=== PATIENT | female | born 1975 | race Caucasian/White ===

== ENCOUNTER 2016-07-14 15:59 | Emergency (ER) | payer SELFPAY ==
[~2016-07-14] VITALS: Ht 160 cm; Wt 69.0 kg
[~2016-07-14 15:59] MED LIST: AMOX500T PO; VENL75XR PO
[2016-07-14 16:08] VITALS: BP 146/87; PULSE 109; RESP 16; TEMP 98.4; O2SAT 99
[2016-07-14] MEDS ORDERED: TRAZ100T4 PO (16:34)
[2016-07-14] MEDS ORDERED: VIST25CA PO (16:34)
[2016-07-14] MEDS ORDERED: LURA40 PO (16:38)
[2016-07-14] MEDS ORDERED: GABA600T PO (16:38)
[2016-07-14] MEDS ORDERED: LEXA10TA PO (16:38)
[2016-07-14] MEDS ORDERED: TOPA50TA7 PO (16:38)
--- NOTE | 2016-07-14 16:53 | PD ---
HPI Chief Complaint: GI Complaint Time Seen by Provider: 16:51 Travel History International Travel<30 days: No Contact w/Intl Traveler<30days: No Traveled to known affect area: No History of Present Illness HPI This 40-year-old female is complaining of nausea and vomiting. She's also been having diarrhea. She's been sick for about 4 days. There's been no recent travel. She cannot think of anything she ate to start it. She has had some sores in her mouth. She has a history of bipolar disease and is on multiple Meds. His been no recent change PFS Past Medical History Anemia: Yes Bipolar Disorder: Yes Anxiety: Yes Depression: Yes Cancer: No Cardiovascular Problems: No Chemotherapy: No Chest Pain: Yes Diabetes: No Diminished Hearing: No Endocrine: No Gastrointestinal Disorders: Yes (ULCERATIVE COLITIS, GASTRITIS, IBS) GERD: Yes Genitourinary: No Headaches: Yes (frequently) Hepatitis: Yes (HEP C) Immune Disorder: No Kidney Stones: Yes (LITHOTRIPSY IN 2008) Musculoskeletal: Yes (SCOLIOSIS) Neurologic: No Psychiatric: Yes (History of overdose, and bipolar) Reproductive: No Respiratory: No Integumentary: Yes (UNKNOWN HIVES) Immunizations Current: Yes Migraines: Yes Pneumonia: Yes Radiation Therapy: No Seizures: Yes (since the age of 17) Sickle Cell Disease: No Thyroid Disease: No Ulcer: Yes Influenza Vaccination: No PNEUMOCCOCAL Vaccine (Year): 2008 ?: Not LMP: ABLATION : 4 Para: 3 Miscarriage: 1 : 0 Ovarian Cysts: Yes Dilation and Curettage (D&C): Yes Tubal Ligation: Yes Past Surgical History Body Medical Devices: BREAST IMPLANTS Genitourinary Surgery: Yes (LITHOTRIPSY) Gynecologic Surgery: Yes (ABLATION) Neurologic Surgery: Yes (LUMBAR PUNCTURE 05/19/13) Pacemaker: No Tonsillectomy: Yes Other Surgery: Yes (BREAST AUGMENTATION, ) Social History Alcohol Use: No Tobacco Use: Yes (Vapes) Substance Use: No ( FLAKKA AND AMPHET. DENIES 07/14/16) Allergies-Medications (Allergen,Severity, Reaction): Coded Allergies: Bactrim (Verified Allergy, Severe, throat closes up, 07/14/16) Ceclor (Verified Allergy, Severe, ANAPHYLAXIS, 07/14/16) Cephalosporins (Verified Allergy, Severe, ANAPHYLAXIS, 07/14/16) PATIENT STATES SHE DOES NOT KNOW WHICH CEPHALOSPORINS SHE HAS AN ALLERGY TO. Cipro (Verified Allergy, Severe, Anaphylaxis, 07/14/16) Flu Vaccine (Verified Allergy, Severe, THROAT SWELLS, 07/14/16) Latex (Verified Allergy, Severe, RASH, 07/14/16) Phenergan (Verified Adverse Reaction, Intermediate, RESTLESS LEGS/ANXIETY , 07/14/16) *MDRO Multi-Drug Resistant Organism (Verified Adverse Reaction, Unknown, 02/27/15) MRSA (per Dr. Fragoso H&P 05/19/2013) E.coli ESBL (urine) - 06/2014 and 07/22/14. Reported Meds & Prescriptions Reported Meds & Active Scripts Active Reported Gabapentin 600 Mg Tab 600 Mg PO BID Topamax (Topiramate) 50 Mg Tab 50 Mg PO BID Lexapro (Escitalopram Oxalate) 10 Mg Tab 10 Mg PO DAILY Latuda (Lurasidone) 40 Mg Tab 40 Mg PO DAILY Vistaril (Hydroxyzine Pamoate) 25 Mg Cap 25 Mg PO QID PRN Trazodone (Trazodone HCl) 100 Mg Tab 100 Mg PO HS Review of Systems General / Constitutional: No: Fever, Chills Eyes: No: Diploplia, Blurred Vision HENT: No: Headaches, Vertigo Cardiovascular: No: Chest Pain or Discomfort Respiratory: No: Cough, Shortness of Breath Gastrointestinal: Positive: Vomiting, Diarrhea Genitourinary: No: Urgency, Frequency Musculoskeletal: No: Myalgias, Arthralgias Skin: No Itching Psychiatric: Positive: Depression Hematologic/Lymphatic: No: Easy Bruising Physical Exam Narrative GENERAL: Well-developed female SKIN: Warm and dry. HEAD: Atraumatic. Normocephalic. EYES: Pupils equal and round. No scleral icterus. No injection or drainage. ENT: No nasal bleeding or discharge. Mucous membranes pink and moist. NECK: Trachea midline. No JVD. CARDIOVASCULAR: Regular rate and rhythm. No murmur appreciated. RESPIRATORY: No accessory muscle use. Clear to auscultation. Breath sounds equal bilaterally. GASTROINTESTINAL: Abdomen soft, non-tender, nondistended. Hepatic and splenic margins not palpable. MUSCULOSKELETAL: No obvious deformities. No clubbing. No cyanosis. No edema. NEUROLOGICAL: Awake and alert. No obvious cranial nerve deficits. Motor grossly within normal limits. Normal speech. PSYCHIATRIC: Appropriate mood and affect; insight and judgment normal. Data Data Last Documented VS Vital Signs Date Time Temp Pulse Resp B/P Pulse Ox O2 Delivery O2 Flow Rate FiO2 07/14/16 18:08 98 20 119/72 98 07/14/16 16:08 98.4 Orders Complete Blood Count With Diff (07/14/16 16:51) Comprehensive Metabolic Panel (07/14/16 16:51) Sodium Chlor 0.9% 1000 Ml Inj (Ns 1000 M (07/14/16 17:00) Sodium Chlor 0.9% 1000 Ml Inj (Ns 1000 M (07/14/16 17:00) Ondansetron Inj (Zofran Inj) (07/14/16 17:00) Urinalysis - C+S If Indicated (07/14/16 16:51) Labs Laboratory Tests Test 07/14/16 07/14/16 16:50 17:35 Urine Color ANNITA Urine Turbidity CLEAR Urine pH 6.5 Urine Specific [place] 1.014 Urine Protein NEG mg/dL Urine Glucose (UA) NEG mg/dL Urine Ketones TRACE mg/dL Urine Occult Blood NEG Urine Nitrite NEG Urine Bilirubin NEG Urine Leukocyte Esterase NEG Urine RBC 0-3 /hpf Urine WBC 0-2 /hpf Urine Squamous Epithelial > 8 /hpf Cells Urine Bacteria FEW /hpf Microscopic Urinalysis Comment CULT NOT INDICATED White Blood Count 6.6 TH/MM3 Red Blood Count 4.34 MIL/MM3 Hemoglobin 13.7 GM/DL Hematocrit 39.2 % Mean Corpuscular Volume 90.3 FL Mean Corpuscular Hemoglobin 31.5 PG Mean Corpuscular Hemoglobin 34.9 % Concent Red Cell Distribution Width 12.1 % Platelet Count 170 TH/MM3 Mean Platelet Volume 8.6 FL Neutrophils (%) (Auto) 51.0 % Lymphocytes (%) (Auto) 37.3 % Monocytes (%) (Auto) 10.0 % Eosinophils (%) (Auto) 1.1 % Basophils (%) (Auto) 0.6 % Neutrophils # (Auto) 3.4 TH/MM3 Lymphocytes # (Auto) 2.4 TH/MM3 Monocytes # (Auto) 0.7 TH/MM3 Eosinophils # (Auto) 0.1 TH/MM3 Basophils # (Auto) 0.0 TH/MM3 CBC Comment DIFF FINAL Differential Comment Sodium Level 139 MEQ/L Potassium Level 3.4 MEQ/L Chloride Level 105 MEQ/L Carbon Dioxide Level 25.5 MEQ/L Anion Gap 9 MEQ/L Blood Urea Nitrogen 11 MG/DL Creatinine 0.77 MG/DL Estimat Glomerular Filtration 83 ML/MIN Rate Random Glucose 95 MG/DL Calcium Level 8.5 MG/DL Total Bilirubin 1.0 MG/DL Aspartate Amino Transf 34 U/L (AST/SGOT) Alanine Aminotransferase 66 U/L (ALT/SGPT) Alkaline Phosphatase 69 U/L Total Protein 6.9 GM/DL Albumin 3.8 GM/DL MDM Medical Decision Making Medical Screen Exam Complete: Yes Emergency Medical Condition: Yes Medical Record Reviewed: Yes Differential Diagnosis Differential includes food poisoning, gastroenteritis, dehydration Narrative Course Patient has been given IV fluids and Zofran. She has been able to tolerate some by mouth liquids. She is stable for discharge. I will prescribe Zofran for her to use as an outpatient Diagnosis Primary Impression: Gastroenteritis Scripts Ondansetron Odt (Zofran Odt)4 Mg Tab4 Mg SL Q6HR PRN (Nausea/Vomiting) #12 TAB Ref 0 Prov:Estevan Burroughs MD 07/14/16 Disposition: 01 DISCHARGE HOME Condition: Stable Estevan Burroughs MD Jul 14, 2016 16:53
[2016-07-14] MEDS ORDERED: ONDANSETRON HCL 4 MG/2 ML VIAL IV PUSH ONE (17:00)
[2016-07-14] MEDS ORDERED: SODIUM CHLOR 0.9% 1000 ML INJ 1,000 ML IV ONE ×2 (17:00)
[2016-07-14 17:29] LABS: BLOOD, URINE NEG (NEG); GLUCOSE,URINE NEG (NEG); KETONE, URINE TRACE mg/dL (NEG); NITRITE,URINE NEG (NEG); PH, URINE 6.5 (5.0-8.5)
[2016-07-14 17:37] LABS: URINE COLOR AMBER (YELLW/STRAW)
[2016-07-14 17:38] LABS: BACTERIA, URINE FEW /hpf; COMMENT (UR) CULT NOT INDICATED; CULTURE IF INDICATED CULT NOT INDICATED; RBC, URINE 0-3 /hpf (0-3); SQUAMOUS EPITHELIAL CELL URINE > 8 /hpf (0-5); WBC, URINE 0-2 /hpf (0-5)
[2016-07-14 17:40] LABS: AUTOMATED NEUTROPHIL # 3.4 TH/MM3 (1.8-7.7); BASOPHIL % 0.6 % (0.0-2.0); EOSINOPHIL # 0.1 TH/MM3 (0-0.4); EOSINOPHIL % 1.1 % (0.0-4.0); HEMATOCRIT 39.2 % (35.0-46.0); HEMO FLAGS DIFF FINAL; LYMPH % 37.3 % (9.0-44.0); LYMPHOCYTE # 2.4 TH/MM3 (1.0-4.8); MEAN CELL VOLUME 90.3 FL (80.0-100.0); MEAN CORPUSCULAR HEMOGLOBIN 31.5 PG (27.0-34.0); MEAN CORPUSCULAR HGB CONC 34.9 % (32.0-36.0); PLATELET COUNT 170 TH/MM3 (150-450); RED BLOOD COUNT 4.34 MIL/MM3 (4.00-5.30); RED CELL DISTRIBUTION WIDTH 12.1 % (11.6-17.2); WHITE BLOOD COUNT 6.6 TH/MM3 (4.0-11.0)
[2016-07-14 17:48] LABS: CHLORIDE 105 MEQ/L (98-107); POTASSIUM 3.4 MEQ/L (3.5-5.1); SODIUM (NA) 139 MEQ/L (136-145)
[2016-07-14 17:52] LABS: ANION GAP 9 MEQ/L (5-15); BICARBONATE 25.5 MEQ/L (21.0-32.0); BLOOD UREA NITROGEN 11 MG/DL (7-18)
[2016-07-14 17:55] LABS: ALT (GPT) 66 U/L (10-53); AST (GOT) 34 U/L (15-37); GLOMERULAR FILTRATION RATE 83 ML/MIN (>89)
[2016-07-14 17:58] LABS: ALKALINE PHOSPHATASE 69 U/L (45-117)
[2016-07-14 18:08] VITALS: BP 119/72; PULSE 98; RESP 20; O2SAT 98
[2016-07-14] MEDS ORDERED: ZOFR4TAB3 SL (18:22)
[2016-07-14 19:05] VITALS: BP 103/50; PULSE 99; RESP 16; O2SAT 95
== END 2016-07-14 19:24 | disposition home or self-care (01) ==
LOC: PHED 15:59
DX: K52.9 Noninfective gastroenteritis and colitis, unspecified (principal); K13.70 Unspecified lesions of oral mucosa; Z72.0 Tobacco use; Z79.899 Other long term (current) drug therapy; Z86.59 Personal history of other mental and behavioral disorders; Z86.2 Personal history of diseases of the blood and blood-forming organs and certain disorders involving the immune mechanism; Z87.19 Personal history of other diseases of the digestive system; Z86.19 Personal history of other infectious and parasitic diseases; Z87.442 Personal history of urinary calculi; Z87.39 Personal history of other diseases of the musculoskeletal system and connective tissue; Z86.69 Personal history of other diseases of the nervous system and sense organs; Z87.01 Personal history of pneumonia (recurrent)
CPT/HCPCS: 80053; 81001; 85025; 96361; 96374; 99284; J2405; J7030

== ENCOUNTER 2016-07-26 14:13 | Emergency (ER) | payer SELFPAY ==
[~2016-07-26] VITALS: Ht 162.6 cm; Wt 70.0 kg
[~2016-07-26 14:13] MED LIST changes: -AMOX500T PO; +GABA600T PO; +LEXA10TA PO; +LURA40 PO; +TOPA50TA7 PO; +TRAZ100T4 PO; -VENL75XR PO; +VIST25CA PO; +ZOFR4TAB3 SL
[2016-07-26 14:30] VITALS: BP 95/67; PULSE 81; RESP 16; TEMP 99.1; O2SAT 98
[2016-07-26 14:46] LABS: BLOOD, URINE NEG (NEG); GLUCOSE,URINE NEG (NEG); KETONE, URINE NEG (NEG); NITRITE,URINE NEG (NEG); PH, URINE 6.5 (5.0-8.5)
[2016-07-26 14:54] LABS: METHOD OF COLLECTION CLEAN CATCH; URINE COLOR YELLOW (YELLW/STRAW)
[2016-07-26 14:57] LABS: COMMENT (UR) CULT NOT INDICATED; CULTURE IF INDICATED CULT NOT INDICATED; SQUAMOUS EPITHELIAL CELL URINE 0-5 /hpf (0-5)
--- NOTE | 2016-07-26 15:17 | PD ---
HPI Chief Complaint: Para Operator Problem/Complaint Time Seen by Provider: 15:02 Travel History International Travel<30 days: No Contact w/Intl Traveler<30days: No Traveled to known affect area: No History of Present Illness HPI This is a 40-year-old female who presents to the emergency department with 1 week of hand swelling, constant, moderate severity associated with generalized fatigue and weakness and body aches. She denies any fevers or chills. 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 Currently she is in a penitentiary house. She also reports that she has dentures and has developed an ulceration on her upper gum line with some pus. She also had unprotected sex when she had relapsed and is having white vaginal discharge which is abnormal for her. PFSH Past Medical History Anemia: Yes Bipolar Disorder: Yes Anxiety: Yes Depression: Yes Cancer: No Cardiovascular Problems: No Chemotherapy: No Chest Pain: Yes Diabetes: No Diminished Hearing: No Endocrine: No Gastrointestinal Disorders: Yes (ULCERATIVE COLITIS, GASTRITIS, IBS) GERD: Yes Genitourinary: No Headaches: Yes (frequently) Hepatitis: Yes (HEP C) Immune Disorder: No Kidney Stones: Yes (LITHOTRIPSY IN 2008) Musculoskeletal: Yes (SCOLIOSIS) Neurologic: No Psychiatric: Yes (History of overdose, and bipolar) Reproductive: No Respiratory: No Integumentary: Yes (UNKNOWN HIVES) Immunizations Current: Yes Migraines: Yes Pneumonia: Yes Radiation Therapy: No Seizures: Yes (since the age of 17) Sickle Cell Disease: No Thyroid Disease: No Ulcer: Yes Influenza Vaccination: No PNEUMOCCOCAL Vaccine (Year): 2008 ?: Not LMP: TUBAL/ABLATION : 4 Para: 3 Miscarriage: 1 : 0 Ovarian Cysts: Yes Dilation and Curettage (D&C): Yes Tubal Ligation: Yes Past Surgical History Body Medical Devices: BREAST IMPLANTS Genitourinary Surgery: Yes (LITHOTRIPSY) Gynecologic Surgery: Yes (ABLATION) Neurologic Surgery: Yes (LUMBAR PUNCTURE 05/19/13) Pacemaker: No Tonsillectomy: Yes Other Surgery: Yes (BREAST AUGMENTATION, ) Social History Alcohol Use: No Tobacco Use: Yes (Vapes) Substance Use: No ( FLAKKA AND AMPHET. DENIES 07/14/16) Allergies-Medications (Allergen,Severity, Reaction): Coded Allergies: Bactrim (Verified Allergy, Severe, throat closes up, 3/3/17) Ceclor (Verified Allergy, Severe, ANAPHYLAXIS, 07/14/16) Cephalosporins (Verified Allergy, Severe, ANAPHYLAXIS, 07/14/16) PATIENT STATES SHE DOES NOT KNOW WHICH CEPHALOSPORINS SHE HAS AN ALLERGY TO. Cipro (Verified Allergy, Severe, Anaphylaxis, 07/14/16) Flu Vaccine (Verified Allergy, Severe, THROAT SWELLS, 07/14/16) Latex (Verified Allergy, Severe, RASH, 07/14/16) Phenergan (Verified Adverse Reaction, Intermediate, RESTLESS LEGS/ANXIETY , 07/14/16) *MDRO Multi-Drug Resistant Organism (Verified Adverse Reaction, Unknown, 02/27/15) MRSA (per Dr. Fragoso H&P 05/19/2013) E.coli ESBL (urine) - 06/2014 and 07/22/14. Reported Meds & Prescriptions Reported Meds & Active Scripts Active Reported Gabapentin 600 Mg Tab 600 Mg PO BID Topamax (Topiramate) 50 Mg Tab 50 Mg PO BID Lexapro (Escitalopram Oxalate) 10 Mg Tab 10 Mg PO DAILY Latuda (Lurasidone) 40 Mg Tab 40 Mg PO DAILY Vistaril (Hydroxyzine Pamoate) 25 Mg Cap 25 Mg PO QID PRN Trazodone (Trazodone HCl) 100 Mg Tab 100 Mg PO HS Review of Systems Except as stated in HPI: all other systems reviewed are Neg Physical Exam Narrative GENERAL:Well appearing, no acute distress SKIN: Warm and dry. HEAD: Atraumatic. Normocephalic. EYES: Pupils equal and round. No injection or drainage. ENT: Moist mucous membranes. Small ulceration on the left upper gumline with some purulent discharge. NECK: Trachea midline. CARDIOVASCULAR: Regular rate and rhythm. No murmur appreciated. Normal capillary refill in all fingers. RESPIRATORY: Clear to auscultation. Breath sounds equal bilaterally. GASTROINTESTINAL: Abdomen soft, non-tender, nondistended. MEDICAL FEE CLERK: scant white discharge with a fishy odor. MUSCULOSKELETAL: Swelling of both hands. NEUROLOGICAL: Awake and alert. No obvious cranial nerve deficits. Moving all extremities. PSYCHIATRIC: Appropriate mood and affect; insight and judgment normal. Data Data Last Documented VS Vital Signs Date Time Temp Pulse Resp B/P Pulse Ox O2 Delivery O2 Flow Rate FiO2 07/26/16 14:30 99.1 81 16 95/67 98 Orders Urinalysis - C+S If Indicated (07/26/16 14:32) Complete Blood Count With Diff (07/26/16 15:12) Comprehensive Metabolic Panel (07/26/16 15:12) ^ Insert Iv (07/26/16 15:12) Blood Culture (07/26/16 15:12) Wet Prep Profile (07/26/16 15:12) C-Reactive Protein (Crp) (07/26/16 15:12) Creatine Kinase (Cpk) (07/26/16 15:12) Labs Laboratory Tests Test 07/26/16 07/26/16 14:30 15:31 Urine Collection Type CLEAN CATCH Urine Color YELLOW Urine Turbidity CLEAR Urine pH 6.5 Urine Specific [place] 1.007 Urine Protein NEG mg/dL Urine Glucose (UA) NEG mg/dL Urine Ketones NEG mg/dL Urine Occult Blood NEG Urine Nitrite NEG Urine Bilirubin NEG Urine Leukocyte Esterase NEG Urine Squamous Epithelial 0-5 /hpf Cells Microscopic Urinalysis Comment CULT NOT INDICATED White Blood Count 7.4 TH/MM3 Red Blood Count 4.23 MIL/MM3 Hemoglobin 13.3 GM/DL Hematocrit 38.4 % Mean Corpuscular Volume 90.7 FL Mean Corpuscular Hemoglobin 31.3 PG Mean Corpuscular Hemoglobin 34.5 % Concent Red Cell Distribution Width 12.4 % Platelet Count 159 TH/MM3 Mean Platelet Volume 8.6 FL Neutrophils (%) (Auto) 69.5 % Lymphocytes (%) (Auto) 24.0 % Monocytes (%) (Auto) 4.9 % Eosinophils (%) (Auto) 1.0 % Basophils (%) (Auto) 0.6 % Neutrophils # (Auto) 5.1 TH/MM3 Lymphocytes # (Auto) 1.8 TH/MM3 Monocytes # (Auto) 0.4 TH/MM3 Eosinophils # (Auto) 0.1 TH/MM3 Basophils # (Auto) 0.0 TH/MM3 CBC Comment DIFF FINAL Differential Comment MDM Medical Decision Making Medical Screen Exam Complete: Yes Emergency Medical Condition: Yes Interpretation(s) temperature 99.1 no leukocytosis urinalysis: no infection Differential Diagnosis Endocarditis, pelvic inflammatory disease, bacterial vaginosis, Kareem syndrome , Reynaud's phenomenon Narrative Course This is a 40-year-old female who presents to the emergency department with swelling in her fingers and hands ever since she relapsed on IV drugs. She does have a remote history of endocarditis. She was placed on a monitor and an IV was established. Labs are obtained which were all reassuring with a normal white blood cell count and a normal percentage of neutrophils. I think endocarditis is very unlikely and she has no other systemic symptoms. Nonetheless cultures were obtained and I will follow up with them in 2 days. I asked her to return to the emergency department if she develops fevers or other symptoms. Pelvic exam was performed demonstrating white discharge consistent with likely bacterial vaginosis. Given her high risk category, she was empirically treated for cervicitis. She also has evidence of an ulceration below her dentures which appears traumatic. She was counseled to follow up with her denture provider. Diagnosis Primary Impression: Cervicitis Patient Instructions: General Instructions Additional Instructions: If you develop fever, chills, severe abdominal pain, persistent vomiting or inability to eat return to the emergency department. Your pelvic exam today did not include a Pap smear. It is important to followup with a fibre optics jointer on a yearly basis to be tested for cervical cancer as we do not do that from the emergency department. If there is a concern that you have sexually transmitted disease, your partner should be tested. You should followup with your fibre optics jointer or with the health department to get tested for other sexually transmitted diseases like HIV and syphilis, as we do not test for these in the emergency department Med/Other Pt SpecificInfo: Prescription(s) given Scripts Metronidazole (Flagyl)500 Mg [id number] Mg PO BID 7 Days Prov:Jami Phillips MD 07/26/16 Disposition: DISCHARGE HOME Condition: Stable Jami Phillips MD Jul 26, 2016 15:17
[2016-07-26 15:38] LABS: AUTOMATED NEUTROPHIL # 5.1 TH/MM3 (1.8-7.7); BASOPHIL % 0.6 % (0.0-2.0); EOSINOPHIL # 0.1 TH/MM3 (0-0.4); HEMATOCRIT 38.4 % (35.0-46.0); HEMO FLAGS DIFF FINAL; LYMPHOCYTE # 1.8 TH/MM3 (1.0-4.8); MEAN CELL VOLUME 90.7 FL (80.0-100.0); MEAN CORPUSCULAR HEMOGLOBIN 31.3 PG (27.0-34.0); MEAN CORPUSCULAR HGB CONC 34.5 % (32.0-36.0); MONO % 4.9 % (0.0-8.0); NEUT % 69.5 % (16.0-70.0); PLATELET COUNT 159 TH/MM3 (150-450); RED BLOOD COUNT 4.23 MIL/MM3 (4.00-5.30); RED CELL DISTRIBUTION WIDTH 12.4 % (11.6-17.2); WHITE BLOOD COUNT 7.4 TH/MM3 (4.0-11.0)
[2016-07-26] MEDS ORDERED: METR-1 PO (15:46)
[2016-07-26 15:48] LABS: CHLORIDE 112 MEQ/L (98-107); SODIUM (NA) 142 MEQ/L (136-145)
[2016-07-26 15:52] LABS: ANION GAP 8 MEQ/L (5-15); BICARBONATE 21.8 MEQ/L (21.0-32.0); BLOOD UREA NITROGEN 8 MG/DL (7-18)
[2016-07-26 15:55] LABS: ALT (GPT) 113 U/L (10-53); AST (GOT) 43 U/L (15-37); GLOMERULAR FILTRATION RATE 101 ML/MIN (>89)
[2016-07-26 15:57] LABS: TOTAL BILIRUBIN ADULT 0.4 MG/DL (0.2-1.0)
[2016-07-26 15:58] LABS: ALKALINE PHOSPHATASE 97 U/L (45-117); CREATINE KINASE 63 U/L (26-192)
[2016-07-26] MEDS ORDERED: GENTAMICIN SULFATE 80 MG/2 ML VIAL IM ONE (16:00)
[2016-07-26] MEDS ORDERED: AZITHROMYCIN PWD FOR SUSP 1 GM PACKET PO ONE (16:00)
== END 2016-07-26 16:41 | disposition home or self-care (01) ==
LOC: PHED 14:13
DX: N72 Inflammatory disease of cervix uteri (principal); N89.8 Other specified noninflammatory disorders of vagina; M79.89 Other specified soft tissue disorders; D64.9 Anemia, unspecified; Z72.0 Tobacco use
CPT/HCPCS: 80053; 81001; 82550; 85025; 86140; 87040; 87210; 96372; 99284; J1580

== ENCOUNTER 2016-10-11 17:51 | Emergency (ER) | payer SELFPAY ==
[~2016-10-11] VITALS: Ht 162.6 cm; Wt 65.0 kg
[~2016-10-11 17:51] MED LIST changes: +METR-1 PO; -ZOFR4TAB3 SL
[2016-10-11 17:53] VITALS: BP 137/95; PULSE 136; RESP 24; TEMP 99.2; O2SAT 99
--- NOTE | 2016-10-11 18:21 | PD ---
Physical Exam Time Seen by Provider: 18:15 Narrative 41yo F c/o trying to attempt suicide for the past 2 days by taking 15 Dilaudid two days ago and a handful of gabapentin yesterday. Reports SI and doesn't know what she would do next. Louie HI. Denies auditory or visual hallucinations. Patient seen in triage. VS reviewed. Awaiting bed placement. Data Data Last Documented VS Vital Signs Date Time Temp Pulse Resp B/P Pulse Ox O2 Delivery O2 Flow Rate FiO2 10/11/16 17:53 99.2 136 24 137/95 99 Room Air [facility] Supervised Visit with MARGE: Bindu Santana October 11, 2016 18:21
[2016-10-11 18:36] VITALS: BP 132/83; PULSE 109; RESP 22; O2SAT 98
--- NOTE | 2016-10-11 18:51 | PD ---
HPI Chief Complaint: Suicide Ideation/Attempt Time Seen by Provider: 18:32 Travel History International Travel<30 days: No Contact w/Intl Traveler<30days: No Traveled to known affect area: No History of Present Illness HPI 41yo F with PMH of seizure on topamax, anxiety, depression presents to the ED with c/o feeling suicidal and attempted to kill herself by overdosing on medication yesterday. Pt states she took a handful of gabapentin 600mg yesterday afternoon as well as injected dilaudid. Denies cutting herself or taking any other medications. +Nausea. Denies any fever, chest pain, sob, vomiting, abdominal pain, focal weakness or numbness. PFSH Past Medical History Anemia: Yes Bipolar Disorder: Yes Anxiety: Yes Depression: Yes Cancer: No Cardiovascular Problems: Yes (HX OF ENDOCARDITIS) Chemotherapy: No Chest Pain: Yes Diabetes: No Diminished Hearing: No Endocrine: No Gastrointestinal Disorders: Yes (ULCERATIVE COLITIS, GASTRITIS, IBS) GERD: Yes Genitourinary: No Headaches: Yes (frequently) Hepatitis: Yes (HEP C) Immune Disorder: No Kidney Stones: Yes (LITHOTRIPSY IN 2008) Musculoskeletal: Yes (SCOLIOSIS) Neurologic: No Psychiatric: Yes (History of overdose, and bipolar) Reproductive: No Respiratory: No Integumentary: Yes (UNKNOWN HIVES) Immunizations Current: Yes Migraines: Yes Pneumonia: Yes Radiation Therapy: No Seizures: Yes (since the age of 17) Sickle Cell Disease: No Thyroid Disease: No Ulcer: Yes PNEUMOCCOCAL Vaccine (Year): 2008 ?: Not : 4 Para: 3 Miscarriage: 1 : 0 Ovarian Cysts: Yes Dilation and Curettage (D&C): Yes Tubal Ligation: Yes Past Surgical History Body Medical Devices: BREAST IMPLANTS Genitourinary Surgery: Yes (LITHOTRIPSY) Gynecologic Surgery: Yes (ABLATION) Hysterectomy: Yes Neurologic Surgery: Yes (LUMBAR PUNCTURE 05/19/13) Pacemaker: No Tonsillectomy: Yes Other Surgery: Yes (BREAST AUGMENTATION, ) Social History Alcohol Use: No Tobacco Use: Yes (Vapes) Substance Use: No ( FLAKKA AND AMPHET. DENIES 07/14/16) Allergies-Medications (Allergen,Severity, Reaction): Coded Allergies: Bactrim (Verified Allergy, Severe, throat closes up, 10/11/16) Ceclor (Verified Allergy, Severe, ANAPHYLAXIS, 10/11/16) Cephalosporins (Verified Allergy, Severe, ANAPHYLAXIS, 10/11/16) PATIENT STATES SHE DOES NOT KNOW WHICH CEPHALOSPORINS SHE HAS AN ALLERGY TO. Cipro (Verified Allergy, Severe, Anaphylaxis, 10/11/16) Flu Vaccine (Verified Allergy, Severe, THROAT SWELLS, 10/11/16) Latex (Verified Allergy, Severe, RASH, 10/11/16) Sulfa (Verified Allergy, Severe, Anaphylaxis, 10/11/16) HIVES. TONGUE SWELLING Phenergan (Verified Adverse Reaction, Intermediate, RESTLESS LEGS/ANXIETY , 10/11/16) *MDRO Multi-Drug Resistant Organism (Verified Adverse Reaction, Unknown, ) MRSA (per Dr. Fragoso H&P 05/19/2013) E.coli ESBL (urine) - 06/2014 and 07/22/14. Reported Meds & Prescriptions Reported Meds & Active Scripts Active Reported Trazodone (Trazodone HCl) 50 Mg Tab 100 Mg PO HS Topamax (Topiramate) 25 Mg Tab 50 Mg PO BID Gabapentin 600 Mg Tab 600 Mg PO BID Lexapro (Escitalopram Oxalate) 10 Mg Tab 20 Mg PO DAILY Latuda (Lurasidone) 40 Mg Tab 40 Mg PO DAILY Vistaril (Hydroxyzine Pamoate) 25 Mg Cap 25 Mg PO QID PRN Review of Systems Except as stated in HPI: all other systems reviewed are Neg Physical Exam Narrative GENERAL: 41yo F not in distress. SKIN: Focused skin assessment warm/dry. HEAD: Atraumatic. Normocephalic. EYES: Pupils equal and round. No scleral icterus. No injection or drainage. ENT: No nasal bleeding or discharge. Mucous membranes pink and moist. NECK: Trachea midline. No JVD. CARDIOVASCULAR: Mildly tachycardic. No murmur appreciated. RESPIRATORY: No accessory muscle use. Clear to auscultation. Breath sounds equal bilaterally. GASTROINTESTINAL: Abdomen soft, non-tender, nondistended. No rebound tenderness or guarding. MUSCULOSKELETAL: No obvious deformities. No clubbing. No cyanosis. No edema. NEUROLOGICAL: Awake and alert. No obvious cranial nerve deficits. Motor grossly within normal limits. Normal speech. Data Data Last Documented VS Vital Signs Date Time Temp Pulse Resp B/P Pulse Ox O2 Delivery O2 Flow Rate FiO2 10/12/16 00:43 96 18 101/58 99 Room Air 10/11/16 17:53 99.2 Orders Complete Blood Count With Diff (10/11/16 18:45) Comprehensive Metabolic Panel (10/11/16 18:45) Electrocardiogram (10/11/16 18:45) Psych Screen (10/11/16 18:45) Drug Screen, Random Urine (10/11/16 18:45) Alcohol (Ethanol) (10/11/16 18:45) Salicylates (Aspirin) (10/11/16 18:45) Tylenol (Acetaminophen) (10/11/16 18:45) Bhcg Screen Qualitative (10/11/16 18:45) Topiramate (Topamax) (10/11/16 18:45) Call Poison Control (10/11/16 18:45) Sodium Chlor 0.9% 1000 Ml Inj (Ns 1000 M (10/11/16 19:00) Ondansetron Inj (Zofran Inj) (10/11/16 19:00) Potassium Chloride (Kcl) (10/11/16 21:00) Labs Laboratory Tests Test 10/11/16 10/11/16 19:01 21:00 White Blood Count 8.2 TH/MM3 Red Blood Count 4.05 MIL/MM3 Hemoglobin 13.1 GM/DL Hematocrit 37.6 % Mean Corpuscular Volume 92.9 FL Mean Corpuscular Hemoglobin 32.5 PG Mean Corpuscular Hemoglobin 35.0 % Concent Red Cell Distribution Width 12.3 % Platelet Count 143 TH/MM3 Mean Platelet Volume 10.0 FL Neutrophils (%) (Auto) 61.8 % Lymphocytes (%) (Auto) 26.3 % Monocytes (%) (Auto) 10.1 % Eosinophils (%) (Auto) 1.1 % Basophils (%) (Auto) 0.7 % Neutrophils # (Auto) 5.1 TH/MM3 Lymphocytes # (Auto) 2.2 TH/MM3 Monocytes # (Auto) 0.8 TH/MM3 Eosinophils # (Auto) 0.1 TH/MM3 Basophils # (Auto) 0.1 TH/MM3 CBC Comment DIFF FINAL Differential Comment Sodium Level 136 MEQ/L Potassium Level 3.0 MEQ/L Chloride Level 105 MEQ/L Carbon Dioxide Level 20.1 MEQ/L Anion Gap 11 MEQ/L Blood Urea Nitrogen 12 MG/DL Creatinine 1.00 MG/DL Estimat Glomerular Filtration 61 ML/MIN Rate Random Glucose 143 MG/DL Calcium Level 8.2 MG/DL Total Bilirubin 0.9 MG/DL Aspartate Amino Transf 63 U/L (AST/SGOT) Alanine Aminotransferase 90 U/L (ALT/SGPT) Alkaline Phosphatase 72 U/L Total Protein 6.6 GM/DL Albumin 3.5 GM/DL Beta HCG, Qualitative LESS THAN 1 MIU/ML Salicylates Level 3.6 MG/DL Acetaminophen Level LESS THAN 2.0 MCG/ML Ethyl Alcohol Level LESS THAN 3 MG/DL Urine Opiates Screen NEG Urine Barbiturates Screen NEG Urine Amphetamines Screen POS Urine Benzodiazepines Screen NEG Urine Cocaine Screen NEG Urine Cannabinoids Screen NEG MDM Medical Decision Making Medical Screen Exam Complete: Yes Emergency Medical Condition: Yes Interpretation(s) EKG: Sinus tachycardia at 110bpm. Normal axis. QRS narrow. QTc 426ms. Differential Diagnosis Overdose vs. drug use Narrative Course 41yo F with suicidal attempt by overdosing yesterday. Pt is AAOx3. Tachycardic in the low 100s on arrival to the ED bed. Pt give NS IVF and zofran. HR improved to 90 after NS IVF. Labs reviewed, no leukocytosis. Mildly hypokalemic at 3.0, replaced orally with 60mEq KCl. AST/ALT elevated which is not new. Pt has no abdominal pain. negative. Pt is Bear Acted because she wants to kill herself. Pt is medically clear for psych evaluation. Pt's mother Mrs. Shelby Guillen called and would like to be contacted at [phone] by psych. Diagnosis Primary Impression: Suicidal ideation Guadalupe Rivas DO October 11, 2016 18:51
[2016-10-11] MEDS ORDERED: ONDANSETRON HCL 4 MG/2 ML VIAL IV PUSH ONE (19:00)
[2016-10-11] MEDS ORDERED: SODIUM CHLOR 0.9% 1000 ML INJ 1,000 ML IV ONE (19:00)
[2016-10-11] MEDS ORDERED: TRAZ50TA12 PO (19:04)
[2016-10-11] MEDS ORDERED: TOPA25TA8 PO (19:04)
[2016-10-11 19:20] LABS: AUTOMATED NEUTROPHIL # 5.1 TH/MM3 (1.8-7.7); BASOPHIL # 0.1 TH/MM3 (0-0.2); BASOPHIL % 0.7 % (0.0-2.0); EOSINOPHIL # 0.1 TH/MM3 (0-0.4); EOSINOPHIL % 1.1 % (0.0-4.0); HEMATOCRIT 37.6 % (35.0-46.0); HEMO FLAGS DIFF FINAL; LYMPH % 26.3 % (9.0-44.0); LYMPHOCYTE # 2.2 TH/MM3 (1.0-4.8); MEAN CELL VOLUME 92.9 FL (80.0-100.0); MEAN CORPUSCULAR HEMOGLOBIN 32.5 PG (27.0-34.0); MONO % 10.1 % (0.0-8.0); NEUT % 61.8 % (16.0-70.0); PLATELET COUNT 143 TH/MM3 (150-450); RED BLOOD COUNT 4.05 MIL/MM3 (4.00-5.30); RED CELL DISTRIBUTION WIDTH 12.3 % (11.6-17.2); WHITE BLOOD COUNT 8.2 TH/MM3 (4.0-11.0)
[2016-10-11 19:52] LABS: ANION GAP 11 MEQ/L (5-15); AST (GOT) 63 U/L (15-37); BICARBONATE 20.1 MEQ/L (21.0-32.0); BLOOD UREA NITROGEN 12 MG/DL (7-18); CHLORIDE 105 MEQ/L (98-107); GLOMERULAR FILTRATION RATE 61 ML/MIN (>89); SODIUM (NA) 136 MEQ/L (136-145)
[2016-10-11 19:53] LABS: ALT (GPT) 90 U/L (10-53)
[2016-10-11 19:57] LABS: ACETAMINOPHEN LESS THAN 2.0 MCG/ML (10.0-30.0); ALKALINE PHOSPHATASE 72 U/L (45-117); TOTAL BILIRUBIN ADULT 0.9 MG/DL (0.2-1.0)
[2016-10-11 19:59] LABS: BHCG SCREEN QUALITATIVE LESS THAN 1 MIU/ML (0-5)
[2016-10-11] MEDS ORDERED: POTASSIUM CHLORIDE 20 MEQ CONTROLLED RELEASE TAB PO ONE (21:00)
[2016-10-11 21:33] LABS: AMPHETAMINE, URINE POS (NEG); COCAINE, URINE NEG (NEG)
[2016-10-11 21:41] LABS: BARBITURATES, URINE NEG (NEG)
[2016-10-11 23:38] VITALS: BP 108/70; PULSE 90; RESP 14; O2SAT 98
[2016-10-12 00:43] VITALS: BP 101/58; PULSE 96; RESP 18; O2SAT 99
[2016-10-12 02:09] VITALS: BP 93/51; PULSE 93; RESP 17; O2SAT 96
[2016-10-12 03:10] VITALS: BP 108/71; PULSE 94; RESP 18; TEMP 98.8; O2SAT 99
[2016-10-12] MEDS ORDERED: SODIUM CHLOR 0.9% 1000 ML INJ 1,000 ML IV ONE (03:15)
[2016-10-12] MEDS ORDERED: ONDANSETRON HCL 4 MG/2 ML VIAL IV PUSH ONE (03:15)
[2016-10-12 03:58] VITALS: BP 88/50; PULSE 89; RESP 16; O2SAT 97
[2016-10-12 07:31] VITALS: BP 104/55; PULSE 88; RESP 16; O2SAT 96
--- NOTE | 2016-10-12 07:44 | EKG ---
Date Performed: 10/11/2016 Time Performed: 18:53:54 PTAGE: 41 years EKG: SINUS TACHYCARDIA POSSIBLE LEFT ATRIAL ENLARGEMENT ABNORMAL RHYTHM ECG Compared to the PREVIOUS TRACING from 02/27/15, rate has increased DOCTOR: Lowell Jacob Interpretating Date/Time 10/12/2016 07:43:18
[2016-10-12 09:04] VITALS: BP 91/54; PULSE 84; RESP 20; O2SAT 96
--- NOTE | 2016-10-12 10:07 | PD ---
History of Present Illness Chief Complaint: Suicide Ideation/Attempt Time Seen by Provider: 10:00 Travel History International Travel<30 Days: No Contact w/Intl Traveler<30days: No Known affected area: No Legal Status Legal Status: Bear Act Bear Act Comment: INITITATED BY: DR KATHRYN MD IN THE ED History of Present Illness: This is a 41-year-old female with a significant history of drug abuse, living in a recovery home ([facility]) who began using opiates several days ago. She felt badly as a result of this choice and made suicidal threats as well as possible overdosing on gabapentin. However she was also injecting herself with dialogue did at the time. At this time she is not complaining of suicidal ideation, plan or intent. She has not homicidal. She is not psychotic. Her cognition is intact. She was encouraged by this physician to call her sponsor, who she has not informed of her relapse. She was also informed we are not a licensed rehabilitation facility and if she feels she needs rehabilitation, she should return to [facility], [place]. This physician understands there is risk and lifting the patient's Bear act, that she may act out. However, it is counter therapeutic to admit her to psychiatry at this time when her main issue is drug abuse/relapse. PFSH Past Medical History Anemia: Yes Bipolar Disorder: Yes Anxiety: Yes Depression: Yes Cancer: No Cardiovascular Problems: Yes (HX OF ENDOCARDITIS) Chemotherapy: No Chest Pain: Yes Diabetes: No Diminished Hearing: No Endocrine: No Gastrointestinal Disorders: Yes (ULCERATIVE COLITIS, GASTRITIS, IBS) GERD: Yes Genitourinary: No Headaches: Yes (frequently) Hepatitis: Yes (HEP C) Immune Disorder: No Kidney Stones: Yes (LITHOTRIPSY IN 2009) Musculoskeletal: Yes (SCOLIOSIS) Neurologic: No Psychiatric: Yes (History of overdose, and bipolar) Reproductive: No Respiratory: No Integumentary: Yes (UNKNOWN HIVES) Immunizations Current: Yes Migraines: Yes Pneumonia: Yes Radiation Therapy: No Seizures: Yes (since the age of 17) Sickle Cell Disease: No Thyroid Disease: No Ulcer: Yes Tetanus Vaccination: > 5 Years PNEUMOCCOCAL Vaccine (Year): 2008 ?: Not : 4 Para: 3 Miscarriage: 1 : 0 Ovarian Cysts: Yes Dilation and Curettage (D&C): Yes Tubal Ligation: Yes (UTERINE ABLATION) Past Surgical History Body Medical Devices: BREAST IMPLANTS Genitourinary Surgery: Yes (LITHOTRIPSY) Gynecologic Surgery: Yes (ABLATION) Hysterectomy: Yes Neurologic Surgery: Yes (LUMBAR PUNCTURE 05/19/13) Pacemaker: No Tonsillectomy: Yes Other Surgery: Yes (BREAST AUGMENTATION, ) Psychiatric History Psychiatric History Hx Psychiatric Treatment: Once again, no significant evidence of bipolar disorder seen at this time. Obvious evidence of drug abuse and patient reacting to her own behavior. History of overdose, bipolar History of Inpatient Treatment: Yes Guns or firearms in home: No Social History Hx Alcohol Use: No Hx Tobacco Use: Yes (Vape and smoke 5-6 cigarettes daily ) Hx Substance Use: Yes ( FLAKKA AND AMPHET, DILAUDID IV) Substance Use Type: Alcohol, Amphetamines-Stimulants, Other Other Substances Used: LAST S.A PROGRAM IN 2003 Hx of Substance Use Treatment: Yes Allergies-Medications (Allergen,Severity, Reaction): Coded Allergies: Bactrim (Verified Allergy, Severe, throat closes up, 10/11/16) Ceclor (Verified Allergy, Severe, ANAPHYLAXIS, 10/11/16) Cephalosporins (Verified Allergy, Severe, ANAPHYLAXIS, 10/11/16) PATIENT STATES SHE DOES NOT KNOW WHICH CEPHALOSPORINS SHE HAS AN ALLERGY TO. Cipro (Verified Allergy, Severe, Anaphylaxis, 10/11/16) Flu Vaccine (Verified Allergy, Severe, THROAT SWELLS, 10/11/16) Latex (Verified Allergy, Severe, RASH, 10/11/16) Sulfa (Verified Allergy, Severe, Anaphylaxis, 10/11/16) HIVES. TONGUE SWELLING Phenergan (Verified Adverse Reaction, Intermediate, RESTLESS LEGS/ANXIETY , 10/11/16) *MDRO Multi-Drug Resistant Organism (Verified Adverse Reaction, Unknown, ) MRSA (per Dr. Fragoso H&P 05/19/2013) E.coli ESBL (urine) - 06/2014 and 07/22/14. Reported Meds & Prescriptions Reported Meds & Active Scripts Active Reported Trazodone (Trazodone HCl) 50 Mg Tab 100 Mg PO HS Topamax (Topiramate) 25 Mg Tab 50 Mg PO BID Gabapentin 600 Mg Tab 600 Mg PO BID Lexapro (Escitalopram Oxalate) 10 Mg Tab 20 Mg PO DAILY Latuda (Lurasidone) 40 Mg Tab 40 Mg PO DAILY Vistaril (Hydroxyzine Pamoate) 25 Mg Cap 25 Mg PO QID PRN Review of Systems Except as stated in HPI: all other systems reviewed are Neg Exam Alert: Yes Fontana: Person, Place, Date, Situation Mood: Calm Affect: Appropriate Speech: Clear Eye Contact: Normal Memory Intact: Immediate, Recent, Remote Insight/Judgement Adequate at this time. MDM Medical Decision Making Medical Record Reviewed: Yes Assessment/Plan Bear act being lifted as it is being used inappropriately in this instance. Referral made to [facility]. Inpatient psychiatric hospitalization counter therapeutic at this time. Orders Complete Blood Count With Diff (10/11/16 18:45) Comprehensive Metabolic Panel (10/11/16 18:45) Electrocardiogram (10/11/16 18:45) Psych Screen (10/11/16 18:45) Drug Screen, Random Urine (10/11/16 18:45) Alcohol (Ethanol) (10/11/16 18:45) Salicylates (Aspirin) (10/11/16 18:45) Tylenol (Acetaminophen) (10/11/16 18:45) Bhcg Screen Qualitative (10/11/16 18:45) Topiramate (Topamax) (10/11/16 18:45) Call Poison Control (10/11/16 18:45) Sodium Chlor 0.9% 1000 Ml Inj (Ns 1000 M (10/11/16 19:00) Ondansetron Inj (Zofran Inj) (10/11/16 19:00) Potassium Chloride (Kcl) (10/11/16 21:00) Diet Regular Basic (10/12/16 Breakfast) Sodium Chlor 0.9% 1000 Ml Inj (Ns 1000 M (10/12/16 03:15) Ondansetron Inj (Zofran Inj) (10/12/16 03:15) Results Vital Signs Date Time Temp Pulse Resp B/P Pulse Ox O2 Delivery O2 Flow Rate FiO2 10/12/16 09:04 84 20 91/54 96 Room Air 10/12/16 07:31 88 16 104/55 96 Room Air 10/12/16 03:58 89 16 88/50 97 Room Air 10/12/16 03:10 98.8 94 18 108/71 99 Room Air 10/12/16 02:09 93 17 93/51 96 Room Air 10/12/16 00:43 96 18 101/58 99 Room Air 10/11/16 23:38 90 14 108/70 98 Room Air 10/11/16 18:36 109 22 132/83 98 Room Air 10/11/16 17:53 99.2 136 24 137/95 99 Room Air Laboratory Tests Test 10/11/16 10/11/16 19:01 21:00 White Blood Count 8.2 Red Blood Count 4.05 Hemoglobin 13.1 Hematocrit 37.6 Mean Corpuscular Volume 92.9 Mean Corpuscular Hemoglobin 32.5 Mean Corpuscular Hemoglobin 35.0 Concent Red Cell Distribution Width 12.3 Platelet Count 143 Mean Platelet Volume 10.0 Neutrophils (%) (Auto) 61.8 Lymphocytes (%) (Auto) 26.3 Monocytes (%) (Auto) 10.1 Eosinophils (%) (Auto) 1.1 Basophils (%) (Auto) 0.7 Neutrophils # (Auto) 5.1 Lymphocytes # (Auto) 2.2 Monocytes # (Auto) 0.8 Eosinophils # (Auto) 0.1 Basophils # (Auto) 0.1 CBC Comment DIFF FINAL Differential Comment Sodium Level 136 Potassium Level 3.0 Chloride Level 105 Carbon Dioxide Level 20.1 Anion Gap 11 Blood Urea Nitrogen 12 Creatinine 1.00 Estimat Glomerular Filtration 61 Rate Random Glucose 143 Calcium Level 8.2 Total Bilirubin 0.9 Aspartate Amino Transf 63 (AST/SGOT) Alanine Aminotransferase 90 (ALT/SGPT) Alkaline Phosphatase 72 Total Protein 6.6 Albumin 3.5 Beta HCG, Qualitative LESS THAN 1 Salicylates Level 3.6 Acetaminophen Level LESS THAN 2.0 Ethyl Alcohol Level LESS THAN 3 Urine Opiates Screen NEG Urine Barbiturates Screen NEG Urine Amphetamines Screen POS Urine Benzodiazepines Screen NEG Urine Cocaine Screen NEG Urine Cannabinoids Screen NEG Diagnosis Primary Impression: Opiate abuse, episodic Mc Sharp MD Oct 12, 2016 10:07
== END 2016-10-12 12:59 | disposition home or self-care (01) ==
LOC: NEPD 17:51
DX: F11.10 Opioid abuse, uncomplicated (principal); R45.851 Suicidal ideations; T40.2X2A Poisoning by other opioids, intentional self-harm, initial encounter; T42.6X2A Poisoning by other antiepileptic and sedative-hypnotic drugs, intentional self-harm, initial encounter; R00.0 Tachycardia, unspecified; F31.9 Bipolar disorder, unspecified; F41.9 Anxiety disorder, unspecified; R56.9 Unspecified convulsions; F15.90 Other stimulant use, unspecified, uncomplicated; F19.90 Other psychoactive substance use, unspecified, uncomplicated; Y92.199 Unspecified place in other specified residential institution as the place of occurrence of the external cause; Z72.0 Tobacco use
CPT/HCPCS: 80053; 80201; 80307; 84703; 85025; 93005; 96374; 96376; 99285; J2405; J7030

== ENCOUNTER 2016-12-11 17:07 | Emergency (ER) | payer SELFPAY ==
[~2016-12-11] VITALS: Ht 162.6 cm; Wt 67.0 kg
[~2016-12-11 17:07] MED LIST changes: -METR-1 PO; +TOPA25TA8 PO; -TOPA50TA7 PO; -TRAZ100T4 PO; +TRAZ50TA12 PO
[2016-12-11 17:12] VITALS: BP 108/57; PULSE 85; RESP 16; TEMP 98.2; O2SAT 100
--- NOTE | 2016-12-11 17:23 | PD ---
HPI Chief Complaint: Fall Time Seen by Provider: 17:18 Travel History International Travel<30 days: No Contact w/Intl Traveler<30days: No Traveled to known affect area: No History of Present Illness HPI 41-year-old female presents the emergency department status post fall on steps at work. She states the carpet on the stairs was loose, and her feet slipped out from under her and she fell backwards onto her back, hurting her neck and head. She states she feels dizzy and nauseous but denies loss of consciousness. She has a headache of 6 out of 10. She has neck pain with cervical collar placed at triage. She has pain in the lumbar spine. She denies upper or lower extremity pain. She has history of MRSA. She has allergies to Bactrim, Ceclor, cephalosporins, Cipro, flu vaccine, latex, Phenergan, and sulfa. PFSH Past Medical History Anemia: Yes Bipolar Disorder: Yes Anxiety: Yes Depression: Yes Cancer: No Cardiovascular Problems: Yes (HX OF ENDOCARDITIS) Chemotherapy: No Chest Pain: Yes Diabetes: No Diminished Hearing: No Endocrine: No Gastrointestinal Disorders: Yes (ULCERATIVE COLITIS, GASTRITIS, IBS) GERD: Yes Genitourinary: No Headaches: Yes (frequently) Hepatitis: Yes (HEP C) Immune Disorder: No Kidney Stones: Yes (LITHOTRIPSY IN 2008) Musculoskeletal: Yes (SCOLIOSIS) Neurologic: No Psychiatric: Yes (History of overdose, and bipolar) Reproductive: No Respiratory: No Integumentary: Yes (UNKNOWN HIVES) Immunizations Current: Yes Migraines: Yes Pneumonia: Yes Radiation Therapy: No Seizures: Yes (since the age of 17) Sickle Cell Disease: No Thyroid Disease: No Ulcer: Yes PNEUMOCCOCAL Vaccine (Year): 2008 ?: Not LMP: ABLATION : 4 Para: 3 Miscarriage: 1 : 0 Ovarian Cysts: Yes Dilation and Curettage (D&C): Yes Tubal Ligation: Yes (UTERINE ABLATION) Past Surgical History Body Medical Devices: BREAST IMPLANTS Genitourinary Surgery: Yes (LITHOTRIPSY) Gynecologic Surgery: Yes (ABLATION) Hysterectomy: Yes Neurologic Surgery: Yes (LUMBAR PUNCTURE 05/19/13) Pacemaker: No Tonsillectomy: Yes Other Surgery: Yes (BREAST AUGMENTATION, ) Social History Alcohol Use: No Tobacco Use: Yes (Vape and smoke 5-6 cigarettes daily ) Substance Use: Yes ( FLAKKA AND AMPHET, DILAUDID IV) Allergies-Medications (Allergen,Severity, Reaction): Coded Allergies: Bactrim (Verified Allergy, Severe, throat closes up, 12/11/16) Ceclor (Verified Allergy, Severe, ANAPHYLAXIS, 12/11/16) Cephalosporins (Verified Allergy, Severe, ANAPHYLAXIS, 12/11/16) PATIENT STATES SHE DOES NOT KNOW WHICH CEPHALOSPORINS SHE HAS AN ALLERGY TO. Cipro (Verified Allergy, Severe, Anaphylaxis, 12/11/16) Flu Vaccine (Verified Allergy, Severe, THROAT SWELLS, 12/11/16) Latex (Verified Allergy, Severe, RASH, 12/11/16) Sulfa (Verified Allergy, Severe, Anaphylaxis, 12/11/16) HIVES. TONGUE SWELLING Phenergan (Verified Adverse Reaction, Intermediate, RESTLESS LEGS/ANXIETY , 12/11/16) *MDRO Multi-Drug Resistant Organism (Verified Adverse Reaction, Unknown, ) MRSA (per Dr. Fragoso H&P 05/19/2013) E.coli ESBL (urine) - 06/2014 and 07/22/14. Reported Meds & Prescriptions Reported Meds & Active Scripts Active Tramadol (Tramadol HCl) 50 Mg Tab 50 Mg PO Q6H PRN Flexeril (Cyclobenzaprine HCl) 10 Mg Tab 10 Mg PO TID Ibuprofen 600 Mg Tab 600 Mg PO Q6H PRN Reported Wellbutrin Xl 24 HR (Bupropion HCl) 150 Mg Tab 150 Mg PO DAILY Trazodone (Trazodone HCl) 50 Mg Tab 100 Mg PO HS Topamax (Topiramate) 25 Mg Tab 50 Mg PO BID Gabapentin 600 Mg Tab 600 Mg PO BID Latuda (Lurasidone) 40 Mg Tab 40 Mg PO DAILY Vistaril (Hydroxyzine Pamoate) 25 Mg Cap 25 Mg PO QID PRN Review of Systems Except as stated in HPI: all other systems reviewed are Neg General / Constitutional: No: Fever Eyes: No: Visual changes HENT: No: Headaches Cardiovascular: No: Chest Pain or Discomfort Respiratory: No: Shortness of Breath Gastrointestinal: Positive: Nausea, No: Vomiting, Diarrhea, Abdominal Pain Genitourinary: No: Dysuria Musculoskeletal: Positive: Pain (see history of present illness) Skin: No Rash Neurologic: Positive: Dizziness, No: Weakness, Syncope, Focal Abnormalities Psychiatric: No: Depression Endocrine: No: Polydipsia Hematologic/Lymphatic: No: Easy Bruising Physical Exam Narrative GENERAL: Patient is in moderate distress per SKIN: Warm and dry. Normal color. Normal turgor. No abrasions, lacerations, or obvious bruises. HEAD: Atraumatic. Normocephalic. Patient has mild to moderate tenderness in the posterior scalp. EYES: Pupils equal and round. No scleral icterus. No injection or drainage. Ocular motion is equal bilaterally. ENT: No nasal bleeding or discharge. Mucous membranes pink and moist. No dental injury. Pharynx is clear. Airway is patent. NECK: Trachea midline. Patient has midline only tenderness without obvious step -off. Range of motion is limited secondary to pain. Cervical collar is maintained for CT scan. CARDIOVASCULAR: Regular rate and rhythm. RESPIRATORY: No accessory muscle use. Clear to auscultation. Breath sounds equal bilaterally. GASTROINTESTINAL: Abdomen soft, non-tender, nondistended. Hepatic and splenic margins not palpable. MUSCULOSKELETAL: Extremities without clubbing, cyanosis, or edema. No obvious deformities. Upper and lower extremities appear normal without obvious deformity or signs of injury. Patient is tenderness with palpation along the lower lumbar spine. There is no bony deformity. NEUROLOGICAL: Awake and alert. No obvious cranial nerve deficits. Motor grossly within normal limits. Five out of 5 muscle strength in the arms and legs. Normal speech. PSYCHIATRIC: Appropriate mood and affect; insight and judgment normal. Data Data Last Documented VS Vital Signs Date Time Temp Pulse Resp B/P Pulse Ox O2 Delivery O2 Flow Rate FiO2 12/11/16 17:12 98.2 85 16 108/[address] Brain W/O Iv Contrast(Rout) (12/11/16 17:23) Ct Cerv Spine W/O Contrast (12/11/16 17:23) Ondansetron Odt (Zofran Odt) (12/11/16 17:30) Oxycodone-Acetamin 5-325 Mg (Percocet (12/11/16 17:30) Spine, Lumbar - Ltd (Ap & Lat) (12/11/16 17:24) [facility] Medical Decision Making Medical Screen Exam Complete: Yes Emergency Medical Condition: Yes Differential Diagnosis Fall on stairs at work. Head injury. Contusion. Lumbar strain. Possible fracture. Narrative Course Patient is in pain but medically stable at time of exam. Cervical collar is maintained for CT scan. Patient is given 4 mg Zofran by mouth as well as Percocet 5/[address] of the head and neck is ordered as well as x-rays of the lumbar spine. CT the head and neck are negative per radiologist. X-ray of the lumbar spine is negative as well. Patiently treated on an outpatient basis with ibuprofen 600 mg 4 times a day # 40. Patient also given Flexeril 10 mg 3 times a day #15. Patient also given tramadol 50 mg one every 6 hours when necessary #20. Worker's Comp. form is completed. Patient follow-up Worker's Comp. for clearance to return to work. Diagnosis Primary Impression: Work place accident Additional Impressions: Fall on stairs Qualified Code: W10.9XXA - Fall on stairs, initial encounter Cervical muscle strain Qualified Code: S16.1XXA - Cervical muscle strain, initial encounter Acute lumbar myofascial strain Patient Instructions: Acute Low Back Pain (ED), Cervical Neck Strain Exercises (GEN), Cervical Strain (ED), General Instructions Additional Instructions: CT the head and neck are negative per radiologist. X-ray of the lumbar spine is negative as well. Patiently treated on an outpatient basis with ibuprofen 600 mg 4 times a day # 40. Patient also given Flexeril 10 mg 3 times a day #15. Patient also given tramadol 50 mg one every 6 hours when necessary #20. Worker's Comp. form is completed. Patient follow-up Worker's Comp. for clearance to return to work. Med/Other Pt SpecificInfo: Prescription(s) given Scripts Tramadol 50 Mg Tab50 Mg PO Q6H PRN (PAIN) #20 TAB Prov:Edgard Jacob MD 12/11/16 Cyclobenzaprine (Flexeril)10 Mg Tab10 Mg PO TID #15 TAB Prov:Edgard Jacob MD 12/11/16 Ibuprofen 600 Mg Qcn755 Mg PO Q6H PRN (Pain/Inflammation) #40 TAB Prov:Edgard Jacob MD 12/11/16 Disposition: 01 DISCHARGE HOME Condition: Stable Butch Terrell Dec 11, 2016 17:23
[2016-12-11] MEDS ORDERED: ONDANSETRON ODT 4 MG TAB PO ONE (17:30)
[2016-12-11] MEDS ORDERED: oxyCODONE/ACETAMINOPHEN 5 MG/325 MG TAB PO ONE (17:30)
[2016-12-11] MEDS ORDERED: BUPR150XL PO (17:49)
--- NOTE | 2016-12-11 18:00 | RADRPT ---
EXAM DATE/TIME: 12/11/2016 17:27 [facility] COMPARISON: LUMBAR PUNCTURE, May 19, 2013, 13:44. INDICATIONS : Trauma, fall. MEDICAL HISTORY : None. SURGICAL HISTORY : None. ENCOUNTER: Initial ACUITY: 1 day PAIN SCORE: 8/10 LOCATION: lumbar spine. FINDINGS: No appreciable compression deformities, spondylolisthesis, or spondylolysis is seen. The disc spaces are well-maintained for technique. Slight scoliosis is seen at thoracolumbar junction. CONCLUSION: Unremarkable study except for slight scoliosis. Alo Espinoza MD on December 11, 2016 at 17:57 Board Certified Radiologist. This report was verified electronically.
--- NOTE | 2016-12-11 18:02 | RADRPT ---
EXAM DATE/TIME: 12/11/2016 17:45 [facility] COMPARISON: No previous studies available for comparison. INDICATIONS : Fell down stairs. Left sided pain. RADIATION DOSE: 59.53 CTDIvol (mGy) MEDICAL HISTORY : Seizures. SURGICAL HISTORY : Tonsillectomy. Tubal ligation.Orbital socket implant. ENCOUNTER: Initial ACUITY: 1 day PAIN SCALE: 4/10 LOCATION: Left cranial TECHNIQUE: Multiple contiguous axial images were obtained of the head. Using automated exposure control and adj ustment of the mA and/or kV according to patient size, radiation dose was kept as low as reasonably a chievable to obtain optimal diagnostic quality images. DICOM format image data is available electro nically for review and comparison. FINDINGS: There is no evidence for intracranial hemorrhage, mass effect, mass lesions, edema, or extra-axial fl uid collections. The visualized bony structures appear intact. The ventricles are normal size for t he patient's age. There are no signs of acute infarction for technique. CONCLUSION: Unremarkable study. Alo Espinoza MD on December 11, 2016 at 17:59 Board Certified Radiologist. This report was verified electronically.
--- NOTE | 2016-12-11 18:18 | RADRPT ---
EXAM DATE/TIME: 12/11/2016 17:45 [facility] COMPARISON: No previous studies available for comparison. INDICATIONS : Fell down stairs. Left sided pain. RADIATION DOSE: 25.01 CTDIvol (mGy) MEDICAL HISTORY : Seizures. SURGICAL HISTORY : Tonsillectomy. Tubal ligation.Orbital socket implant. ENCOUNTER: Initial ACUITY: 1 day PAIN SCALE: 4/10 LOCATION: Left neck TECHNIQUE: Volumetric scanning of the cervical spine was performed. Multiplanar reconstructions in the sagittal, coronal and oblique axial planes were performed. Using automated exposure control and adjustment o f the mA and/or kV according to patient size, radiation dose was kept as low as reasonably achievable to obtain optimal diagnostic quality images. DICOM format image data is available electronically f or review and comparison. FINDINGS: VERTEBRAE: Normal vertebral body height. The atlantoaxial articulation is intact. ALIGNMENT: No evidence of subluxation. Mild curvature of the lower cervical spine towards the right. C2-C3: No fracture seen. Neural foramina are patent. C3-C4: No fracture seen. Neural foramina are patent. C4-C5: No fracture seen. Neural foramina are patent. C5-C6: No fracture seen. Neural foramina are patent. C6-C7: No fracture seen. Neural foramina are patent. C7-T1: No fracture seen. Neural foramina are patent. CONCLUSION: Negative exam. No evidence of compression fracture or spondylolisthesis. Carroll Sevilla MD on December 11, 2016 at 18:13 Board Certified Radiologist. This report was verified electronically.
[2016-12-11] MEDS ORDERED: IBUP-232 PO (18:20)
[2016-12-11] MEDS ORDERED: TRAM50TA PO (18:20)
[2016-12-11] MEDS ORDERED: CYCL1TAB29 PO (18:20)
== END 2016-12-11 19:04 | disposition home or self-care (01) ==
LOC: PHEFT 17:07
DX: S16.1XXA Strain of muscle, fascia and tendon at neck level, initial encounter (principal); S39.012A Strain of muscle, fascia and tendon of lower back, initial encounter; R51 Headache; R42 Dizziness and giddiness; R11.0 Nausea; W10.9XXA Fall (on) (from) unspecified stairs and steps, initial encounter; Y99.0 Civilian activity done for income or pay; Z86.14 Personal history of Methicillin resistant Staphylococcus aureus infection; Z86.2 Personal history of diseases of the blood and blood-forming organs and certain disorders involving the immune mechanism; Z86.59 Personal history of other mental and behavioral disorders; Z86.79 Personal history of other diseases of the circulatory system; Z87.19 Personal history of other diseases of the digestive system; Z87.442 Personal history of urinary calculi; Z87.39 Personal history of other diseases of the musculoskeletal system and connective tissue; Z86.69 Personal history of other diseases of the nervous system and sense organs
CPT/HCPCS: 70450; 72100; 72125; 99285

== ENCOUNTER 2016-12-25 19:23 | Emergency (ER) | payer SELFPAY ==
[~2016-12-25] VITALS: Ht 170.2 cm; Wt 60.0 kg
[~2016-12-25 19:23] MED LIST changes: +BUPR150XL PO; +CYCL1TAB29 PO; +IBUP-232 PO; -LEXA10TA PO; +TRAM50TA PO
[2016-12-25 19:25] VITALS: BP 109/68; PULSE 96; RESP 16; TEMP 98.3; O2SAT 100
--- NOTE | 2016-12-25 20:44 | PD ---
Physical Exam Time Seen by Provider: 20:35 Narrative 41yo F c/o vag dc and odor x 1 week. +Abd pain and cramping x couple days. Hx uterine ablation and does not get menses. Also concerned of contuinued pain between scapulas after falling down stairs at work 2 weeks ago. Has been evaluiated for the fall and taking Flexeril. Was seen at [facility] in [place] for fall. Denies fever, vomiting. +nausea. Patient seen in triage. VS reviewed. Awaiting bed placement. Data Data Last Documented VS Vital Signs Date Time Temp Pulse Resp B/P Pulse Ox O2 Delivery O2 Flow Rate FiO2 12/25/16 19:25 98.3 96 16 109/68 100 Room Air MDM Supervised Visit with MARGE: Bindu Santana Dec 25, 2016 20:44
--- NOTE | 2016-12-25 21:55 | PD ---
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 Patient reports having intercourse about 2 weeks ago and the condom broke. History of uterine ablation and bilateral tubal ligation. No other abdominal surgeries. Over the last week she has been having vaginal discharge and lower abdominal cramping. She denies fevers or chills. No urinary symptoms. PFSH Past Medical History Anemia: Yes Bipolar Disorder: Yes Anxiety: Yes Depression: Yes Cancer: No Cardiovascular Problems: Yes (HX OF ENDOCARDITIS) Chemotherapy: No Chest Pain: Yes Diabetes: No Diminished Hearing: No Endocrine: No Gastrointestinal Disorders: Yes (ULCERATIVE COLITIS, GASTRITIS, IBS) GERD: Yes Genitourinary: No Headaches: Yes (frequently) Hepatitis: Yes (HEP C) Immune Disorder: No Kidney Stones: Yes (LITHOTRIPSY IN 2008) Musculoskeletal: Yes (SCOLIOSIS) Neurologic: No Psychiatric: Yes (History of overdose, and bipolar) Reproductive: No Respiratory: No Integumentary: Yes (UNKNOWN HIVES) Immunizations Current: Yes Migraines: Yes Pneumonia: Yes Radiation Therapy: No Seizures: Yes (since the age of 17) Sickle Cell Disease: No Thyroid Disease: No Ulcer: Yes PNEUMOCCOCAL Vaccine (Year): 2008 : 4 Para: 3 Miscarriage: 1 : 0 Ovarian Cysts: Yes Dilation and Curettage (D&C): Yes Tubal Ligation: Yes (UTERINE ABLATION) Past Surgical History Body Medical Devices: BREAST IMPLANTS Genitourinary Surgery: Yes (LITHOTRIPSY) Gynecologic Surgery: Yes (ABLATION) Hysterectomy: Yes Neurologic Surgery: Yes (LUMBAR PUNCTURE 05/19/13) Pacemaker: No Tonsillectomy: Yes Other Surgery: Yes (BREAST AUGMENTATION, ) Social History Alcohol Use: No Tobacco Use: Yes (Vape and smoke 5-6 cigarettes daily ) 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 Cipro (Verified Allergy, Severe, Anaphylaxis, 12/25/16) Flu Vaccine (Verified Allergy, Severe, THROAT SWELLS, 12/25/16) Latex (Verified Allergy, Severe, RASH, 12/25/16) Sulfa (Verified Allergy, Severe, Anaphylaxis, 12/25/16) HIVES. TONGUE SWELLING Phenergan (Verified Adverse Reaction, Intermediate, RESTLESS LEGS/ANXIETY , 12/25/16) *MDRO Multi-Drug Resistant Organism (Verified Adverse Reaction, Unknown, ) MRSA (per Dr. Fragoso H&P 05/19/2013) E.coli ESBL (urine) - 06/2014 and 07/22/14. Reported Meds & Prescriptions Reported Meds & Active Scripts Active Tramadol (Tramadol HCl) 50 Mg Tab 50 Mg PO Q6H PRN Flexeril (Cyclobenzaprine HCl) 10 Mg Tab 10 Mg PO TID Ibuprofen 600 Mg Tab 600 Mg PO Q6H PRN Reported Wellbutrin Xl 24 HR (Bupropion HCl) 150 Mg Tab 150 Mg PO DAILY Trazodone (Trazodone HCl) 50 Mg Tab 100 Mg PO HS Topamax (Topiramate) 25 Mg Tab 50 Mg PO BID Gabapentin 600 Mg Tab 600 Mg PO BID Latuda (Lurasidone) 40 Mg Tab 40 Mg PO DAILY Vistaril (Hydroxyzine Pamoate) 25 Mg Cap 25 Mg PO QID PRN Review of Systems Except as stated in HPI: all other systems reviewed are Neg Physical Exam Narrative GENERAL: Well-developed, well-nourished, no apparent distress. SKIN: Focused skin assessment warm/dry. No rash. HEAD: Atraumatic. Normocephalic. EYES: Pupils equal and round. No scleral icterus. No injection or drainage. ENT: Mucous membranes pink and moist. CARDIOVASCULAR: Regular rate and rhythm. RESPIRATORY: No accessory muscle use. Clear to auscultation. Breath sounds equal bilaterally. GASTROINTESTINAL: Abdomen soft, nondistended. Mild suprapubic tenderness without peritoneal signs. Rest of abdomen is soft and nontender. Normal bowel sounds. 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 Normal external genitalia. Scant/whitish/[id number]-[id number] vaginal discharge. Normal cervix. No CMT. No adnexal masses or tenderness. MUSCULOSKELETAL: No obvious deformities. No clubbing. No cyanosis. No edema. NEUROLOGICAL: Awake and alert. No obvious cranial nerve deficits. Motor grossly within normal limits. Normal speech. PSYCHIATRIC: Appropriate mood and affect; insight and judgment normal. Data Data Last Documented VS Vital Signs Date Time Temp Pulse Resp B/P Pulse Ox O2 Delivery O2 Flow Rate FiO2 12/25/16 19:25 98.3 96 16 109/68 100 Room Air Orders Gc And Chlamydia Pcr (12/25/16 21:50) Wet Prep Profile (12/25/16 21:50) Urinalysis - C+S If Indicated (12/25/16 21:50) Ed Urine Pregnancytest Poc (12/25/16 21:51) Azithromycin Powd Pack (Zithromax Powd P (12/25/16 22:30) Doxycycline (Vibramycin) (12/25/16 22:30) Labs Laboratory Tests Test 12/25/16 12/25/16 22:13 22:20 Urine Color YELLOW Urine Turbidity HAZY Urine pH 6.0 Urine Specific [place] 1.026 Urine Protein TRACE mg/dL Urine Glucose (UA) NEG mg/dL Urine Ketones NEG mg/dL Urine Occult Blood NEG Urine Nitrite NEG Urine Bilirubin NEG Urine Urobilinogen LESS THAN 2.0 MG/DL Urine Leukocyte Esterase NEG Urine RBC LESS THAN 1 /hpf Urine WBC 1 /hpf Urine Squamous Epithelial 5 /hpf Cells Microscopic Urinalysis Comment CULT NOT INDICATED Clue Cells (Wet Prep) NONE SEEN Vaginal Trichomonas (Wet Prep) NONE SEEN Vaginal Yeast (Wet Prep) NONE SEEN MDM Medical Decision Making Medical Screen Exam Complete: Yes Emergency Medical Condition: Yes Differential Diagnosis STI, PID, TOA, ovarian cyst, ovarian torsion unlikely, , ectopic , UTI, cystitis, acute surgical process unlikely Narrative Course Vital signs reviewed. UA is not suggestive of UTI. Wet prep is negative for yeast, negative for clue cells, negative for Trichomonas. Pelvic exam shows scant whitish/not possible in vaginal discharge, normal- appearing cervix, mild uterine tenderness, no CMT, no adnexal masses or tenderness. Abdominal exam shows mild suprapubic tenderness without peritoneal signs. I do not believe there is an acute intra-abdominal/surgical process to warrant imaging at this time. The patient is allergic to Keflex/ cephalosporins. She likely has early PID and was therefore treated with 2 g of oral azithromycin and will be started on doxycycline for 2 weeks. She will also be given a prescription for Naprosyn. She is stable for discharge home with outpatient follow-up with an RESIDENTIAL CARE OFFICER doctor this week. She was informed when to return to the emergency department. She verbalizes understanding and agreement with plan. Diagnosis Primary Impression: Vaginal discharge Referrals: Certified Flex Endoscope Reprocessor 3 days Additional Instructions: Follow-up with an RESIDENTIAL CARE OFFICER doctor this week. Return to the emergency department for worsening symptoms or any other concerns. Scripts Methocarbamol (Robaxin)500 Mg [id number] Mg PO TID #20 TAB Ref 0 Prov:Lit Pena MD 12/25/16 Naproxen (Naprosyn)500 Mg [id number] Mg PO BID 14 Days Ref 0 Prov:Lit Pena MD 12/25/16 Doxycycline Hyclate 100 Mg [id number] Mg PO BID 14 Days Ref 0 Prov:Lit Pena MD 12/25/16 Disposition: 01 DISCHARGE HOME Condition: Stable Lit Pena MD Dec 25, 2016 21:54
[2016-12-25] MEDS ORDERED: DOXYCYCLINE HYCLATE 100 MG CAP PO ONE (22:30)
[2016-12-25] MEDS ORDERED: AZITHROMYCIN PWD FOR SUSP 1 GM PACKET PO ONE (22:30)
[2016-12-25 22:38] LABS: BLOOD, URINE NEG (NEG); COMMENT (UR) CULT NOT INDICATED; CULTURE IF INDICATED CULT NOT INDICATED; GLUCOSE,URINE NEG (NEG); KETONE, URINE NEG (NEG); NITRITE,URINE NEG (NEG); SQUAMOUS EPITHELIAL CELL URINE 5 /hpf (0-5); URINE COLOR YELLOW (YELLW/STRAW)
[2016-12-25] MEDS ORDERED: NAPR500 PO (22:53)
[2016-12-25] MEDS ORDERED: DOXY100C PO (22:53)
[2016-12-25] MEDS ORDERED: ROBA500T PO (22:53)
[2016-12-26 01:13] LABS: CHLAMYDIA PCR NOT DETECTED (NOT DETECT); NEISSERIA PCR NOT DETECTED (NOT DETECT)
== END 2016-12-26 01:51 | disposition home or self-care (01) ==
LOC: NEPD 19:23
DX: N89.8 Other specified noninflammatory disorders of vagina (principal)
CPT/HCPCS: 81001; 84703; 87210; 87491; 87591; 99284

== ENCOUNTER 2017-07-11 14:37 | Emergency (ER) | payer SELFPAY ==
[~2017-07-11] VITALS: Ht 165.1 cm; Wt 71.8 kg
[~2017-07-11 14:37] MED LIST changes: +CYCL10TA PO; -CYCL1TAB29 PO; +DOXY100C PO; +NAPR500 PO; +ROBA500T PO; -TOPA25TA8 PO; +TOPI25 PO
[2017-07-11 14:45] VITALS: BP 98/61; PULSE 87; RESP 16; TEMP 98.5; O2SAT 97
--- NOTE | 2017-07-11 16:44 | PD ---
HPI Chief Complaint: Cold / Flu Symptoms Time Seen by Provider: 16:13 Travel History International Travel<30 days: No Contact w/Intl Traveler<30days: No Traveled to known affect area: No History of Present Illness HPI 41-year-old female presents to the emergency room for evaluation of sore throat , chills, body aches, headache, and congestion that started yesterday and worsened today. Her roommate was just diagnosed with influenza 3 days ago. Patient denies any objective fevers. She took Motrin this morning. Denies any chronic medical conditions or medications. PFSH Past Medical History Anemia: Yes Bipolar Disorder: Yes Anxiety: Yes Depression: Yes Cancer: No Cardiovascular Problems: Yes (HX OF ENDOCARDITIS) Chemotherapy: No Chest Pain: Yes Diabetes: No Diminished Hearing: No Endocrine: No Gastrointestinal Disorders: Yes (ULCERATIVE COLITIS, GASTRITIS, IBS) GERD: Yes Genitourinary: No Headaches: Yes Hepatitis: Yes (HEP C) Immune Disorder: No Kidney Stones: Yes (LITHOTRIPSY IN 2008) Musculoskeletal: Yes (SCOLIOSIS) Neurologic: No Psychiatric: Yes (History of overdose, and bipolar) Reproductive: No Respiratory: No Integumentary: Yes (UNKNOWN HIVES) Immunizations Current: Yes Migraines: Yes Pneumonia: Yes Radiation Therapy: No Seizures: Yes (hx off) Sickle Cell Disease: No Thyroid Disease: No Ulcer: Yes Tetanus Vaccination: > 5 Years Influenza Vaccination: No PNEUMOCCOCAL Vaccine (Year): 2008 ?: Not LMP: ablation : 4 Para: 3 Miscarriage: 1 : 0 Ovarian Cysts: Yes Dilation and Curettage (D&C): Yes Tubal Ligation: Yes (UTERINE ABLATION) Past Surgical History Body Medical Devices: BREAST IMPLANTS Genitourinary Surgery: Yes (LITHOTRIPSY) Gynecologic Surgery: Yes (ABLATION) Hysterectomy: Yes Neurologic Surgery: Yes (LUMBAR PUNCTURE 05/19/13) Pacemaker: No Tonsillectomy: Yes Other Surgery: Yes (BREAST AUGMENTATION, ) Social History Alcohol Use: No Tobacco Use: No (Vape and smoke 5-6 cigarettes daily ) 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 TONGUE SWELLING cefaclor (Unverified Allergy, Severe, ANAPHYLAXIS, 07/11/17) cefepime (Unverified Allergy, Severe, ANAPHYLAXIS, 07/11/17) PATIENT STATES SHE DOES NOT KNOW WHICH CEPHALOSPORINS SHE HAS AN ALLERGY TO. ceftaroline fosamil (Unverified Allergy, Severe, ANAPHYLAXIS, 07/11/17) PATIENT STATES SHE DOES NOT KNOW WHICH CEPHALOSPORINS SHE HAS AN ALLERGY TO. ciprofloxacin (Unverified Allergy, Severe, Anaphylaxis, 07/11/17) latex (Unverified Allergy, Severe, RASH, 07/11/17) sulfamethoxazole (Unverified Allergy, Severe, throat closes up, 07/11/17) trimethoprim (Unverified Allergy, Severe, throat closes up, 07/11/17) promethazine (Unverified Adverse Reaction, Intermediate, RESTLESS LEGS/ ANXIETY, 07/11/17) *MDRO Multi-Drug Resistant Organism (Verified Adverse Reaction, Unknown, ) MRSA (per Dr. Fragoso H&P 05/19/2013) E.coli ESBL (urine) - 06/2014 and 07/22/14. Reported Meds & Prescriptions Reported Meds & Active Scripts Active Reported Wellbutrin Xl 24 HR (Bupropion HCl) 150 Mg Tab 300 Mg PO DAILY Trazodone (Trazodone HCl) 50 Mg Tab 100 Mg PO HS Gabapentin 600 Mg Tab 600 Mg PO BID Latuda (Lurasidone) 40 Mg Tab 40 Mg PO DAILY Vistaril (Hydroxyzine Pamoate) 25 Mg Cap 25 Mg PO QID PRN Review of Systems Except as stated in HPI: all other systems reviewed are Neg Physical Exam Narrative GENERAL: Well-nourished, well-developed female no acute distress. Afebrile. Ambulatory. SKIN: Focused skin assessment warm/dry. HEAD: Normocephalic. EYES: No scleral icterus. No injection or drainage. ENT: Mucosa pink and moist. Mild erythema without exudates. No uvular edema. No uvular, palatal, or tonsillar deviation. Airway patent. Nasal turbinates appear normal without nasal blood, purulent drainage or septal hematoma. EARS: Bilateral pinnae and external canals appear within normal limits. Bilateral tympanic membranes without erythema, dullness or perforation. NECK: Supple, trachea midline. No JVD or lymphadenopathy. CARDIOVASCULAR: Regular rate and rhythm without murmurs, gallops, or rubs. RESPIRATORY: Breath sounds equal bilaterally. No accessory muscle use. No crackles, rales, wheezes, or rhonchi. Data Data Last Documented VS Vital Signs Date Time Temp Pulse Resp B/P (MAP) Pulse Ox O2 Delivery O2 Flow Rate FiO2 07/11/17 16:08 16 97 Room Air 07/11/17 14:45 98.5 87 98/61 (73) Orders Orders Influenzae A/B Antigen (07/11/17 16:09) Group A Rapid Strep Screen (07/11/17 16:09) Strep Culture (Group A) (07/11/17 16:39) Ed Discharge Order (07/11/17 17:16) MDM Medical Decision Making Medical Screen Exam Complete: Yes Emergency Medical Condition: Yes Medical Record Reviewed: Yes Differential Diagnosis Influenza, strep, pneumonia, URI Narrative Course 41-year-old otherwise healthy female presents to the emergency room for evaluation of sick symptoms that started yesterday. Her roommate was diagnosed with influenza 3 days ago. Patient is afebrile and well-appearing in the emergency room. Vital signs stable. Physical exam is reassuring. There is mild erythema of the pharynx. Lung sounds clear and equal bilaterally. Rapid influenza and strep are negative. This is viral URI. Patient discharged with instructions to follow-up with a primary care physician or return for worsening symptoms. She understands and agrees to plan. Diagnosis Primary Impression: Upper respiratory infection Qualified Codes: J00 - Acute nasopharyngitis [common cold] Referrals: Primary Care Physician Departure Forms: Tests/Procedures, Work Release Enter return to work date: Jul 13, 2017 Additional Instructions: Rest and drink plenty of fluids. [id number] cough and cold medication for symptoms. Follow-up with a primary care physician. Return to the emergency room for worsening symptoms. Med/Other Pt SpecificInfo: Prescription(s) given Disposition: 01 DISCHARGE HOME Condition: Stable Lindsay Hager Jul 11, 2017 16:44
== END 2017-07-11 17:34 | disposition home or self-care (01) ==
LOC: PHEFT 14:37
DX: J06.9 Acute upper respiratory infection, unspecified (principal); K21.9 Gastro-esophageal reflux disease without esophagitis; B19.20 Unspecified viral hepatitis C without hepatic coma; M41.9 Scoliosis, unspecified; F31.9 Bipolar disorder, unspecified; F17.210 Nicotine dependence, cigarettes, uncomplicated; Z20.828 Contact with and (suspected) exposure to other viral communicable diseases; Z88.2 Allergy status to sulfonamides; Z88.8 Allergy status to other drugs, medicaments and biological substances; Z79.899 Other long term (current) drug therapy
CPT/HCPCS: 87081; 87804; 87880; 99283

== ENCOUNTER 2017-10-18 10:16 | Emergency (ER) | payer SELFPAY ==
[~2017-10-18] VITALS: Ht 160 cm; Wt 66.6 kg
[~2017-10-18 10:16] MED LIST changes: -CYCL10TA PO; -DOXY100C PO; -IBUP-232 PO; -NAPR500 PO; -ROBA500T PO; -TOPI25 PO; -TRAM50TA PO
[2017-10-18 10:20] VITALS: BP 130/84; PULSE 101; RESP 16; TEMP 98.7; O2SAT 99
[2017-10-18] MEDS ORDERED: PHEN15CA2 PO (10:31)
[2017-10-18] MEDS ORDERED: AZITHROMYCIN PWD FOR SUSP 1 GM PACKET PO ONE (10:45)
[2017-10-18] MEDS ORDERED: GENTAMICIN SULFATE 80 MG/2 ML VIAL IM ONE (10:45)
--- NOTE | 2017-10-18 10:46 | PD ---
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 Patient states she believes her boyfriend is cheating on her and began to develop discharge after she found out. States she does not typically have discharge so this is abnormal for her. She denies history of STDs. Denies any abdominal pain, nausea, vomiting, fever, chills, flank pain, dysuria, urgency, or frequency. No chronic medical conditions or daily medications. Patient has history of uterine ablation and tubal ligation. PFSH Past Medical History Anemia: Yes Bipolar Disorder: Yes Anxiety: Yes Depression: Yes Cancer: No Cardiovascular Problems: Yes (HX OF ENDOCARDITIS) Chemotherapy: No Chest Pain: Yes Diabetes: No Diminished Hearing: No Endocrine: No Gastrointestinal Disorders: Yes (ULCERATIVE COLITIS, GASTRITIS, IBS) GERD: Yes Genitourinary: No Headaches: Yes Hepatitis: Yes (HEP C) Immune Disorder: No Kidney Stones: Yes (LITHOTRIPSY IN 2008) Musculoskeletal: Yes (SCOLIOSIS) Neurologic: No Psychiatric: Yes (History of overdose, and bipolar) Reproductive: No Respiratory: No Integumentary: Yes (UNKNOWN HIVES) Immunizations Current: Yes Migraines: Yes Pneumonia: Yes Radiation Therapy: No Seizures: Yes (hx off) Sickle Cell Disease: No Thyroid Disease: No Ulcer: Yes PNEUMOCCOCAL Vaccine (Year): 2008 ?: Not LMP: no menses ablasion : 4 Para: 3 Miscarriage: 1 : 0 Ovarian Cysts: Yes Dilation and Curettage (D&C): Yes Tubal Ligation: Yes (UTERINE ABLATION) Past Surgical History Body Medical Devices: BREAST IMPLANTS Genitourinary Surgery: Yes (LITHOTRIPSY) Gynecologic Surgery: Yes (ABLATION) Hysterectomy: Yes Neurologic Surgery: Yes (LUMBAR PUNCTURE 05/19/13) Pacemaker: No Tonsillectomy: Yes Other Surgery: Yes (BREAST AUGMENTATION, ) Social History Alcohol Use: No Tobacco Use: No (Vape and smoke 5-6 cigarettes daily ) Substance Use: No (( FLAKKA AND AMPHET, 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 TONGUE SWELLING cefaclor (Unverified Allergy, Severe, ANAPHYLAXIS, 10/18/17) cefepime (Unverified Allergy, Severe, ANAPHYLAXIS, 10/18/17) PATIENT STATES SHE DOES NOT KNOW WHICH CEPHALOSPORINS SHE HAS AN ALLERGY TO. ceftaroline fosamil (Unverified Allergy, Severe, ANAPHYLAXIS, 10/18/17) PATIENT STATES SHE DOES NOT KNOW WHICH CEPHALOSPORINS SHE HAS AN ALLERGY TO. ciprofloxacin (Unverified Allergy, Severe, Anaphylaxis, 10/18/17) latex (Unverified Allergy, Severe, RASH, 10/18/17) sulfamethoxazole (Unverified Allergy, Severe, throat closes up, 10/18/17) trimethoprim (Unverified Allergy, Severe, throat closes up, 10/18/17) promethazine (Unverified Adverse Reaction, Intermediate, RESTLESS LEGS/ ANXIETY, 10/18/17) *MDRO Multi-Drug Resistant Organism (Verified Adverse Reaction, Unknown, ) MRSA (per Dr. Fragoso H&P 05/19/2013) E.coli ESBL (urine) - 06/2014 and 07/22/14. Reported Meds & Prescriptions Reported Meds & Active Scripts Active Diflucan (Fluconazole) 150 Mg Tab 150 Mg PO ONCE Reported Phentermine (Phentermine HCl) 15 Mg Cap Unknown Dose Wellbutrin Xl 24 HR (Bupropion HCl) 150 Mg Tab 200 Mg PO DAILY Trazodone (Trazodone HCl) 50 Mg Tab 100 Mg PO HS Latuda (Lurasidone) 40 Mg Tab 40 Mg PO DAILY Vistaril (Hydroxyzine Pamoate) 25 Mg Cap 25 Mg PO QID PRN Review of Systems Except as stated in HPI: all other systems reviewed are Neg Physical Exam Narrative GENERAL: Well-nourished, well-developed female no acute distress. Afebrile. Ambulatory. SKIN: Focused skin assessment warm/dry. HEAD: Normocephalic. EYES: No scleral icterus. No injection or drainage. NECK: Supple, trachea midline. No JVD or lymphadenopathy. CARDIOVASCULAR: Regular rate and rhythm without murmurs, gallops, or rubs. RESPIRATORY: Breath sounds equal bilaterally. No accessory muscle use. GASTROINTESTINAL: Abdomen soft, non-tender, nondistended. GENITOURINARY: Normal external genitalia without lesions or erythema. Vaginal vault without blood. There is curd-like white drainage. Cervical os was closed with the same drainage. No cervical motion tenderness. Uterus nontender and nonenlarged. Bilateral adnexa nontender without masses. Data Data Last Documented VS Vital Signs Date Time Temp Pulse Resp B/P (MAP) Pulse Ox O2 Delivery O2 Flow Rate FiO2 10/18/17 10:20 98.7 101 16 130/84 (99) 99 Orders Orders Urinalysis - C+S If Indicated (10/18/17 10:33) Gc And Chlamydia Pcr (10/18/17 10:33) Wet Prep Profile (10/18/17 10:33) Azithromycin Powd Pack (Zithromax Powd P (10/18/17 10:45) Ed Urine Pregnancytest Poc (10/18/17 10:33) Gentamicin Inj (Gentamicin Inj) (10/18/17 10:45) Ed Discharge Order (10/18/17 11:11) Labs Laboratory Tests Test 10/18/17 10:50 Urine Collection Type CLEAN CATCH Urine Color YELLOW Urine Turbidity CLEAR Urine pH 7.0 Urine Specific [place] LESS/EQUAL 1.005 Urine Protein NEG mg/dL Urine Glucose (UA) NEG mg/dL Urine Ketones NEG mg/dL Urine Occult Blood NEG Urine Nitrite NEG Urine Bilirubin NEG Urine Urobilinogen 0.2 MG/DL Urine Leukocyte Esterase NEG Urine WBC 0-2 /hpf Urine Squamous Epithelial Cells 0-5 /hpf Microscopic Urinalysis Comment CULT NOT INDICATED Clue Cells (Wet Prep) NONE SEEN Vaginal Trichomonas (Wet Prep) NONE SEEN Vaginal Yeast (Wet Prep) NONE SEEN MDM Medical Decision Making Medical Screen Exam Complete: Yes Emergency Medical Condition: Yes Medical Record Reviewed: Yes Differential Diagnosis Vaginal discharge, STD, vaginitis, UTI Narrative Course 42-year-old female presents to the emergency room for evaluation of abnormal vaginal discharge for the past 3 days. Patient is concerned she has an STD because she believes her boyfriend cheated on her. Physical exam reveals normal external genitalia without lesions or erythema. Vaginal vault without blood. There is curd-like white drainage. Cervical os was closed with the same drainage. No cervical motion tenderness. Uterus nontender and nonenlarged. Bilateral adnexa nontender without masses. Abdomen soft, nontender. It appears to be yeast infection. Wet prep is negative. UA negative. Patient treated empirically for gonorrhea and chlamydia with azithromycin and gentamicin. She was given probable side effects of GI upset and told to take probiotics or yogurt when she gets home in [id number] nausea medication if needed. Told to follow-up with health department for complete STD panel. She will be discharged with prescription for Diflucan and told to return for worsening symptoms. She understands and agrees to plan. Diagnosis Primary Impression: Vaginal discharge Referrals: Primary Care Physician Additional Instructions: Rest and drink plenty of fluids. Take Diflucan tomorrow. Follow-up with a primary care physician. Return to the emergency room for worsening symptoms. Scripts Fluconazole (Diflucan) 150 Mg Tab 150 MG PO ONCE for Infection, #1 TAB 0 Refills Prov: Estevan Burroughs MD 10/18/17 Disposition: 01 DISCHARGE HOME Condition: Stable Lindsay Hager Oct 18, 2017 10:45
[2017-10-18 11:03] LABS: BILIRUBIN, URINE NEG (NEG); BLOOD, URINE NEG (NEG); GLUCOSE,URINE NEG (NEG); KETONE, URINE NEG (NEG); NITRITE,URINE NEG (NEG); URINE COLOR YELLOW (YELLW/STRAW); URINE LEUKOCYTE ESTERASE NEG (NEG)
[2017-10-18 11:09] LABS: SQUAMOUS EPITHELIAL CELL URINE 0-5 /hpf (0-5); WBC, URINE 0-2 /hpf (0-5)
[2017-10-18] MEDS ORDERED: DIFL150T PO (11:11)
== END 2017-10-18 11:47 | disposition home or self-care (01) ==
LOC: PHED 10:16
DX: N89.8 Other specified noninflammatory disorders of vagina (principal); F31.9 Bipolar disorder, unspecified; F41.9 Anxiety disorder, unspecified; K58.9 Irritable bowel syndrome, unspecified; K21.9 Gastro-esophageal reflux disease without esophagitis; B19.20 Unspecified viral hepatitis C without hepatic coma; M41.9 Scoliosis, unspecified; F17.210 Nicotine dependence, cigarettes, uncomplicated
CPT/HCPCS: 81001; 84703; 87210; 87491; 87591; 96372; 99283; J1580

== ENCOUNTER 2017-10-23 20:50 | Emergency (ER) | payer SELFPAY ==
[~2017-10-23] VITALS: Ht 160 cm; Wt 65.2 kg
[~2017-10-23 20:50] MED LIST changes: +DIFL150T PO; -GABA600T PO; +PHEN15CA2 PO
[2017-10-23 21:08] VITALS: BP 156/80; PULSE 115; RESP 18; TEMP 99.6; O2SAT 99
[2017-10-23] MEDS ORDERED: GABA600T PO (21:22)
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
[2017-10-23] MEDS ORDERED: CLINDAMYCIN INJ 600 MG in SODIUM CHLORIDE 0.9% INJ 100 ML IV ONE (22:00)
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
[2017-10-24] MEDS ORDERED: CLINDAMYCIN PHOS 600 MG/4 ML VIAL IM ONE
[2017-10-24 00:05] LABS: AUTOMATED NEUTROPHIL # 4.9 TH/MM3 (1.8-7.7); BASOPHIL # 0.1 TH/MM3 (0-0.2); BASOPHIL % 1.9 % (0.0-2.0); EOSINOPHIL # 0.1 TH/MM3 (0-0.4); EOSINOPHIL % 0.8 % (0.0-4.0); HEMATOCRIT 42.1 % (35.0-46.0); LYMPH % 28.2 % (9.0-44.0); LYMPHOCYTE # 2.2 TH/MM3 (1.0-4.8); MEAN CELL VOLUME 93.3 FL (80.0-100.0); MEAN CORPUSCULAR HEMOGLOBIN 33.2 PG (27.0-34.0); MEAN CORPUSCULAR HGB CONC 35.6 % (32.0-36.0); MEAN PLATELET VOLUME 10.2 FL (7.0-11.0); MONO % 5.8 % (0.0-8.0); MONOCYTE # 0.5 TH/MM3 (0-0.9); NEUT % 63.3 % (16.0-70.0); PLATELET COUNT 112 TH/MM3 (150-450); RED BLOOD COUNT 4.51 MIL/MM3 (4.00-5.30); RED CELL DISTRIBUTION WIDTH 12.5 % (11.6-17.2); WHITE BLOOD COUNT 7.8 TH/MM3 (4.0-11.0)
[2017-10-24 00:11] LABS: BICARBONATE 23.9 MEQ/L (21.0-32.0); CALCIUM 9.2 MG/DL (8.5-10.1)
[2017-10-24 00:14] LABS: CREATININE 0.69 MG/DL (0.50-1.00)
[2017-10-24] MEDS ORDERED: CLIN300C5 PO (00:27)
[2017-10-24 00:38] LABS: C-REACTIVE PROTEIN 2.22 MG/DL (0.00-0.30)
[2017-10-24 00:50] VITALS: BP 146/78
== END 2017-10-24 00:54 | disposition home or self-care (01) ==
LOC: PHEFT 20:50
DX: L03.012 Cellulitis of left finger (principal); T23.022A Burn of unspecified degree of single left finger (nail) except thumb, initial encounter; X08.8XXA Exposure to other specified smoke, fire and flames, initial encounter; R50.9 Fever, unspecified; R00.0 Tachycardia, unspecified; F31.9 Bipolar disorder, unspecified; F41.9 Anxiety disorder, unspecified; K58.9 Irritable bowel syndrome, unspecified; K21.9 Gastro-esophageal reflux disease without esophagitis; B19.20 Unspecified viral hepatitis C without hepatic coma; M41.9 Scoliosis, unspecified; Z87.442 Personal history of urinary calculi; F17.210 Nicotine dependence, cigarettes, uncomplicated
CPT/HCPCS: 73140; 80048; 83605; 85025; 86140; 87070; 87205; 96372

== ENCOUNTER 2017-10-26 22:14 | Emergency (ER) | payer SELFPAY ==
[~2017-10-26] VITALS: Ht 160 cm; Wt 62.9 kg
[~2017-10-26 22:14] MED LIST changes: +CLIN300C5 PO; -DIFL150T PO; +GABA600T PO
[2017-10-26 22:17] VITALS: BP 135/71; PULSE 101; RESP 18; TEMP 98.9; O2SAT 100
--- NOTE | 2017-10-26 22:54 | PD ---
HPI Chief Complaint: Skin Problem Time Seen by Provider: 22:43 Travel History International Travel<30 days: No Contact w/Intl Traveler<30days: No Traveled to known affect area: No History of Present Illness HPI This is a 42-year-old female who has a history of IV drug use who presents to the emergency department with small pustules on her fingers. She was seen in the emergency department several days ago for an infection associated with a burn on her left second finger. At that time she was started on clindamycin which she says she has been taking. The swelling of her fingers has improved but she started to notice little pus filled bumps on her fingers and on her face , constant, mild, with no associated chest pain, shortness of breath or fever. PFSH Past Medical History Anemia: Yes Blood Disorders: Yes (ANEMIA) Bipolar Disorder: Yes Anxiety: Yes Depression: Yes Cancer: No Cardiovascular Problems: Yes (HX OF ENDOCARDITIS) Chemotherapy: No Chest Pain: Yes Diabetes: No Diminished Hearing: No Endocrine: No Gastrointestinal Disorders: Yes (ULCERATIVE COLITIS, GASTRITIS, IBS) GERD: Yes Genitourinary: No Headaches: Yes Hepatitis: Yes (HEP C) Immune Disorder: No Kidney Stones: Yes (LITHOTRIPSY IN 2008) Musculoskeletal: Yes (SCOLIOSIS) Neurologic: No Psychiatric: Yes (History of overdose, and bipolar) Reproductive: No Respiratory: No Integumentary: Yes (UNKNOWN HIVES) Immunizations Current: Yes Migraines: Yes Pneumonia: Yes Radiation Therapy: No Seizures: Yes (hx off) Sickle Cell Disease: No Thyroid Disease: No Ulcer: Yes Tetanus Vaccination: > 5 Years Influenza Vaccination: No PNEUMOCCOCAL Vaccine (Year): 2008 ?: Not LMP: uterine ablation : 4 Para: 3 Miscarriage: 1 : 0 Ovarian Cysts: Yes Dilation and Curettage (D&C): Yes Tubal Ligation: Yes (UTERINE ABLATION) Past Surgical History Body Medical Devices: BREAST IMPLANTS Genitourinary Surgery: Yes (LITHOTRIPSY) Gynecologic Surgery: Yes (ABLATION) Hysterectomy: Yes Neurologic Surgery: Yes (LUMBAR PUNCTURE 05/19/13) Pacemaker: No Tonsillectomy: Yes Other Surgery: Yes (BREAST AUGMENTATION, ) Social History Alcohol Use: No Tobacco Use: Yes (Vape and smoke 5-6 cigarettes daily ) Substance Use: No (( FLAKKA AND AMPHET, 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 TONGUE SWELLING cefaclor (Unverified Allergy, Severe, ANAPHYLAXIS, 10/26/17) cefepime (Unverified Allergy, Severe, ANAPHYLAXIS, 10/26/17) PATIENT STATES SHE DOES NOT KNOW WHICH CEPHALOSPORINS SHE HAS AN ALLERGY TO. ceftaroline fosamil (Unverified Allergy, Severe, ANAPHYLAXIS, 10/26/17) PATIENT STATES SHE DOES NOT KNOW WHICH CEPHALOSPORINS SHE HAS AN ALLERGY TO. ciprofloxacin (Unverified Allergy, Severe, Anaphylaxis, 10/26/17) latex (Unverified Allergy, Severe, RASH, 10/26/17) sulfamethoxazole (Unverified Allergy, Severe, throat closes up, 10/26/17) trimethoprim (Unverified Allergy, Severe, throat closes up, 10/26/17) promethazine (Unverified Adverse Reaction, Intermediate, RESTLESS LEGS/ ANXIETY, 10/26/17) *MDRO Multi-Drug Resistant Organism (Verified Adverse Reaction, Unknown, ) MRSA (per Dr. Fragoso H&P 05/19/2013) E.coli ESBL (urine) - 06/2014 and 07/22/14. Reported Meds & Prescriptions Reported Meds & Active Scripts Active Clindamycin (Clindamycin HCl) 300 Mg Cap 300 Mg PO Q6H 10 Days Reported Gabapentin 600 Mg Tab 600 Mg PO TID Phentermine (Phentermine HCl) 15 Mg Cap 37.5 Mg PO DAILY Wellbutrin Xl 24 HR (Bupropion HCl) 150 Mg Tab 200 Mg PO DAILY Trazodone (Trazodone HCl) 50 Mg Tab 100 Mg PO HS Latuda (Lurasidone) 40 Mg Tab 40 Mg PO DAILY Vistaril (Hydroxyzine Pamoate) 25 Mg Cap 25 Mg PO QID PRN Review of Systems General / Constitutional: No: Fever Cardiovascular: No: Chest Pain or Discomfort Respiratory: No: Shortness of Breath Physical Exam Narrative GENERAL: Well-appearing, no acute distress, nontoxic SKIN: Healing ulceration on the distal left second finger with some surrounding erythema and minimal warmth, excoriation of both hands, small pustule on right second finger and several scattered pustules on the face around the mouth HEAD: Atraumatic. Normocephalic. ENT: No nasal bleeding or discharge. Moist mucous membranes MUSCULOSKELETAL: No obvious deformities. NEUROLOGICAL: Awake and alert. No obvious cranial nerve deficits. Motor grossly within normal limits. Normal speech. PSYCHIATRIC: Appropriate mood and affect; insight and judgment normal. Data Data Last Documented VS Vital Signs Date Time Temp Pulse Resp B/P (MAP) Pulse Ox O2 Delivery O2 Flow Rate FiO2 10/26/17 22:17 98.9 101 18 135/71 (92) 100 MDM Medical Decision Making Medical Screen Exam Complete: Yes Emergency Medical Condition: Yes Differential Diagnosis Folliculitis, cellulitis, abscess, endocarditis Narrative Course This is a 42-year-old female who presents to the emergency department with several scattered pustules on her hands and face. She has a history of IV drug use. She is afebrile and has no chest pain or shortness of breath to suggest endocarditis at this time. Patient is already on clindamycin and appears her finger infection is improving. I think she would benefit from a topical antibiotic as well. I did offer her IV Dalvance but she says she is very difficult IV access and she would prefer to try the topical antibiotic and she will return if her symptoms are not improving. I think patient can safely be discharged home and she does not appear toxic or systemically ill. Diagnosis Primary Impression: Folliculitis Patient Instructions: General Instructions Additional Instructions: If you develop increasing redness, swelling, fevers, chills, chest pain or shortness of breath return to the emergency department. Med/Other Pt SpecificInfo: No Change to Meds Disposition: 01 DISCHARGE HOME Condition: Stable Jami Phillips MD Oct 26, 2017 22:54
[2017-10-26] MEDS ORDERED: BACITRACIN TOP OINT 15 GM TUBE TOPICAL ONE (23:15)
[2017-10-27 00:29] VITALS: BP 132/78
== END 2017-10-27 00:31 | disposition home or self-care (01) ==
LOC: PHEFT 22:14
DX: L73.9 Follicular disorder, unspecified (principal); T23.022D Burn of unspecified degree of single left finger (nail) except thumb, subsequent encounter; X08.8XXD Exposure to other specified smoke, fire and flames, subsequent encounter; F31.9 Bipolar disorder, unspecified; F41.9 Anxiety disorder, unspecified; K21.9 Gastro-esophageal reflux disease without esophagitis; B19.20 Unspecified viral hepatitis C without hepatic coma; K58.9 Irritable bowel syndrome, unspecified; M41.9 Scoliosis, unspecified; F17.210 Nicotine dependence, cigarettes, uncomplicated; Z87.442 Personal history of urinary calculi
CPT/HCPCS: 99283

== ENCOUNTER 2018-03-20 19:33 | Observation (INO) ==
[2018-03-20 20:17] VITALS: TEMP 97.8
[2018-03-21] MEDS ORDERED: Morphine Inj 4 MG/ML Vial IV.PUSH ONE (00:57)
[2018-03-21] MEDS ORDERED: Clindamycin 900 mg/NS Premix 900 MG/50 ML PIGGYBACK IV.SIG STA (00:57)
--- NOTE | 2018-03-21 01:05 | ED ---
HPI General Chief complaint: Skin/Abscess/Foreign Body Stated complaint: Foot swelling/pain Time Seen by Provider: 03/21/18 00:49 Source: patient Mode of arrival: ambulatory Limitations: no limitations History of Present Illness HPI narrative: 42-year-old female with history of bipolar disorder, IV drug abuse here for evaluation of multiple skin infections. The patient reports that she was at [facility] 2 days ago and had an abscess on her right buttock incised and drained as well as packed. She reports that she was started on doxycycline and states that she has been taking this medication. States that since the incision and drainage she has had significant pain, swelling, erythema to her right foot and left forearm. She denies trauma to these areas. She denies injecting drugs to either of these areas, stating that she uses in her neck as this is the only vein that she is able to access. She has had subjective fevers and chills. Pain in her right foot is severe, constant, worse with movements and palpation. Related Data Home Medications Medication Instructions Recorded Confirmed bupropion HCl [Wellbutrin SR] 200 mg PO BID 11/30/17 03/21/18 lurasidone [Latuda] 60 mg PO HS 11/30/17 03/21/18 gabapentin 600 mg PO TID 03/21/18 03/21/18 hydroxyzine pamoate [Vistaril] 50 mg PO TID-QID PRN 03/21/18 03/21/18 oxycodone 30 mg PO Q4-6H PRN 03/21/18 03/21/18 trazodone 100 mg PO HS 03/21/18 03/21/18 Allergies Allergy/AdvReac Type Severity Reaction Status Date / Time cefaclor Allergy Severe ANAPHYLAXIS Verified 03/21/18 00:52 cefepime Allergy Severe ANAPHYLAXIS Verified 03/21/18 00:52 ceftaroline fosamil Allergy Severe ANAPHYLAXIS Verified 03/21/18 00:52 ciprofloxacin Allergy Severe Anaphylaxis Verified 03/21/18 00:52 Influenza Virus Vaccines Allergy Severe THROAT Verified 03/21/18 00:52 SWELLS latex Allergy Severe RASH Verified 03/21/18 00:52 Sulfa (Sulfonamide Allergy Severe Anaphylaxis Verified 03/21/18 00:52 Antibiotics) sulfamethoxazole Allergy Severe throat Verified 03/21/18 00:52 closes up trimethoprim Allergy Severe throat Verified 03/21/18 00:52 closes up promethazine AdvReac Intermediate RESTLESS Verified 03/21/18 00:52 LEGS/ANXIETY *MDRO Multi-Drug Resistant AdvReac Unknown Fever Uncoded 11/30/17 04:03 Organism Review of Systems ROS: all other systems reviewed are negative [facility] Medical History Medical History Anemia (Acute) Anxiety (Acute) Bipolar disorder (Acute) GERD (gastroesophageal reflux disease) (Acute) Gastritis (Acute) Endocarditis (Acute) Social History Social History Substance History: Active Abuse Second Hand Smoke Exposure: Yes Smoking Status: Current every day smoker Tobacco Type: Cigarettes How Often Do You Have a Drink Containing Alcohol: 2 to 3 times a week Recent Travel in [facility] within the Last 8 Weeks: No Recent Out of Country Travel within the Last 8 Weeks: No Exam Narrative Exam Narrative: GENERAL: Well-developed, thin, awake, alert, no apparent distress. SKIN: Diffuse edema to the right foot, ankle, distal leg with diffuse erythema and warmth, no red streaks, no crepitus, no fluctuance or induration. There is an area of warmth and erythema and induration to the patient's left proximal/ anterior forearm without fluctuance. Patient's right buttock was examined in the presence of a female nurse and there is an open wound where she had an incision and drainage performed with packing which was removed. There is mild surrounding warmth and erythema, no crepitus, mild induration, no fluctuance, no drainage. HEAD: Atraumatic. Normocephalic. EYES: Pupils equal and round. No scleral icterus. No injection or drainage. ENT: No nasal bleeding or discharge. Mucous membranes pink and dry. NECK: Trachea midline. No JVD. CARDIOVASCULAR: Regular rate and rhythm. Mild holosystolic murmur. RESPIRATORY: No accessory muscle use. Clear to auscultation. Breath sounds equal bilaterally. GASTROINTESTINAL: Abdomen soft, non-tender, nondistended. MUSCULOSKELETAL: No obvious deformities. No clubbing. No cyanosis. No edema. NEUROLOGICAL: Awake and alert. No obvious cranial nerve deficits. Motor grossly within normal limits. Normal speech. PSYCHIATRIC: Appropriate mood and affect; insight and judgment normal. Course Initial Documented Vital Signs Temperature 97.8 F 03/20/18 20:10 Pulse Rate 102 H 03/20/18 20:10 Respiratory Rate 18 11/07/18 20:10 Blood Pressure 131/70 11/07/18 20:10 Pulse Oximetry 97 03/20/18 20:10 Last Documented Vital Signs Temperature 97.8 F 03/20/18 20:10 Pulse Rate 89 03/21/18 02:00 Respiratory Rate 18 03/21/18 02:07 Blood Pressure 147/62 H 03/21/18 02:00 Pulse Oximetry 98 03/21/18 02:00 Medical Decision Making MDM Narrative Medical decision making narrative: Vital signs and labs reviewed. Potassium replaced orally. Right foot x-ray: CONCLUSION: No acute bony findings. Patient was given a dose of IV clindamycin. She does have significant cellulitis to her right foot with significant edema. Circulation appears to be normal in bilateral lower extremities. The patient had a right buttock abscess that was incised and drained 2 days ago at [facility] and she has been on doxycycline. She tells me that she uses IV methamphetamine, and injection to her neck only. There are no Osler nodes, Jan[place]ay lesions, or splinter hemorrhages, however because of history of IV drug use, slight murmur on exam, and various areas of cellulitis, I am concerned about the possibility of bacteremia, and therefore the patient will be admitted for further antibiotic therapy and blood culture results. Case discussed with hospitalist Dr. Conway who will admit the patient to his service. Medical Screen Exam Complete: Yes Emergency Medical Condition: Yes Differential Diagnosis Differential Diagnosis: Sepsis, cellulitis, abscess, endocarditis, bacteremia, necrotizing fasciitis, osteomyelitis Lab Data Result diagrams: 03/21/18 02:00 03/21/18 02:00 Lab Results 03/21/18 03/21/18 03/21/18 Range/Units 02:00 02:00 02:01 WBC 6.0 (4.0-11.0) th/mm3 RBC 3.85 L (4.00-5.30) mil/mm3 Hgb 11.9 (11.6-15.3) gm/dL Hct 34.9 L (35.0-46.0) % MCV 90.5 (80.0-100.0) fL MCH 31.0 (27.0-34.0) pg MCHC 34.2 (32.0-36.0) % RDW 13.5 (11.6-17.2) % Plt Count 233 (150-450) th/mm3 MPV 8.1 (7.0-11.0) fL Neut % (Auto) 48.4 (16.0-70.0) % Lymph % (Auto) 41.9 (9.0-44.0) % Cascade % (Auto) 7.1 (0.0-8.0) % Eos % (Auto) 2.0 (0.0-4.0) % Baso % (Auto) 0.6 (0.0-2.0) % Neut # (Auto) 2.9 (1.8-7.7) th/mm3 Lymph # (Auto) 2.5 (1.0-4.8) th/mm3 Cascade # (Auto) 0.4 (0.0-0.9) th/mm3 Eos # (Auto) 0.1 (0.0-0.4) th/mm3 Baso # (Auto) 0.0 (0.0-0.2) th/mm3 WBC Differential . Differential Comment Auto diff final Sodium 142 (136-145) meq/L Potassium 3.0 L (3.5-5.1) meq/L Chloride 106 (98-107) meq/L Carbon Dioxide 30.2 (21.0-32.0) meq/L Anion Gap 6 (5-15) meq/L BUN 5 L (7-18) mg/dL Creatinine 0.76 (0.50-1.00) mg/dL Estimated GFR 84 L (>89) mL/min Random Glucose 84 (74-106) mg/dL Lactic Acid 0.6 (0.4-2.0) mmol/L Calcium 9.0 (8.5-10.1) mg/dL Magnesium 2.0 (1.5-2.5) mg/dL Total Bilirubin 0.4 (0.2-1.0) mg/dL AST 14 L (15-37) U/L ALT 30 (10-53) U/L Alkaline Phosphatase 102 (45-117) U/L Total Creatine Kinase 92 (26-192) U/L Troponin I Less than 0.02 L (0.02-0.05) ng/mL Total Protein 7.5 (6.4-8.2) g/dL Albumin 3.3 L (3.4-5.0) g/dL Imaging Data Radiologist's impression: Chest X-Ray 03/21/18 00:57 CONCLUSION: No acute disease Foot X-Ray 03/21/18 00:57 CONCLUSION: No acute bony findings. Discharge Plan Discharge Disposition Patient Disposition: 30 Still Patient Discharge Condition Condition: Stable Discharge Details Diagnosis: Cellulitis of leg, right, Drug abuse, IV, Hypokalemia Physicians Team ED Provider: Lit Pena Primary Care Provider: Primary Care PhysiciClaudette Rxs /Orders / Referrals /Forms Prescriptions: No Action bupropion HCl [Wellbutrin SR] 100 mg Tablet Extended Release 12 Hr 200 mg PO BID RF: 0 lurasidone [Latuda] 60 mg Tablet 60 mg PO HS RF: 0 gabapentin 600 mg Tablet 600 mg PO TID RF: 0 hydroxyzine pamoate [Vistaril] 50 mg Capsule 50 mg PO TID-QID PRN (Reason: Anxiety) RF: 0 trazodone 100 mg Tablet 100 mg PO HS RF: 0 oxycodone 30 mg Tablet 30 mg PO Q4-6H PRN (Reason: Pain) RF: 0 Discharge Interventions Interventions: Vital Signs Last Done: 03/21/18 02:00 Status ED Status: With Doctor
--- NOTE | 2018-03-21 02:15 | XR ---
EXAM DATE: 03/21/2018 2:09 AM EST AGE/SEX: 42 years / Female INDICATIONS: Fever starting today CLINICAL DATA: This is the patient's initial encounter. Patient reports that signs and symptoms have been present for 1 day and indicates a pain score of 0/10. MEDICAL/SURGICAL HISTORY: None. None. COMPARISON: [facility] [place]ST SINGLE AP, 01/25/2015. . FINDINGS: A single AP view of the chest demonstrates the lungs to be symmetrically aerated without evidence of mass, infiltrate or effusion. The cardiomediastinal contours are unremarkable. Moderate thoracic sco liosis. CONCLUSION: No acute disease Electronically signed by: Puma Montgomery MD 03/21/2018 2:14 AM EST
[2018-03-21 02:18] LABS: Baso % (Auto) 0.6 % (0.0-2.0); Eos # (Auto) 0.1 th/mm3 (0.0-0.4); Hematocrit 34.9 % (35.0-46.0); Hemoglobin 11.9 gm/dL (11.6-15.3); Lymph # (Auto) 2.5 th/mm3 (1.0-4.8); Lymph % (Auto) 41.9 % (9.0-44.0); Mean Corpuscular HGB Conc 34.2 % (32.0-36.0); Mean Corpuscular Volume 90.5 fL (80.0-100.0); Mean Platelet Volume 8.1 fL (7.0-11.0); Mono # (Auto) 0.4 th/mm3 (0.0-0.9); Mono % (Auto) 7.1 % (0.0-8.0); Neut # (Auto) 2.9 th/mm3 (1.8-7.7); Neut % (Auto) 48.4 % (16.0-70.0); Platelet Count 233 th/mm3 (150-450); Red Blood Count 3.85 mil/mm3 (4.00-5.30); Red Cell Distribution Width 13.5 % (11.6-17.2)
--- NOTE | 2018-03-21 02:20 | XR ---
EXAM DATE: 03/21/2018 2:10 AM EST AGE/SEX: 42 years / Female INDICATIONS: Open sore on dorsal surface of right foot for 1 week CLINICAL DATA: This is the patient's initial encounter. Patient reports that signs and symptoms have been present for 1 day and indicates a pain score of 8/10. MEDICAL/SURGICAL HISTORY: None. None. COMPARISON: . FINDINGS: Bony structures are intact and in normal alignment. Osseous density is normal. Mild dorsal soft tissu e swelling. No radiopaque foreign bodies seen. Plantar heel spur noted. CONCLUSION: No acute bony findings. Electronically signed by: Puma Montgomery MD 03/21/2018 2:19 AM EST
[2018-03-21 02:32] LABS: Alanine Aminotransferase 30 U/L (10-53); Albumin 3.3 g/dL (3.4-5.0); Anion Gap 6 meq/L (5-15); Aspartate Aminotransferase 14 U/L (15-37); Blood Urea Nitrogen 5 mg/dL (7-18); Carbon Dioxide 30.2 meq/L (21.0-32.0); Chloride 106 meq/L (98-107); Glomerular Filtration Rate 84 mL/min (>89); Glucose,Random 84 mg/dL (74-106); Sodium 142 meq/L (136-145)
[2018-03-21 02:36] LABS: Alkaline Phosphatase 102 U/L (45-117); Total Protein 7.5 g/dL (6.4-8.2)
[2018-03-21 02:38] LABS: Creatine Kinase 92 U/L (26-192)
[2018-03-21] MEDS ORDERED: Gabapentin 300 MG Capsule PO ONE (03:19)
[2018-03-21] MEDS ORDERED: Bisacodyl 10 MG Supp RECTAL PRN (03:41)
[2018-03-21] MEDS ORDERED: Sod Chloride 0.9% Inj 1,000 ML IV.CONT SCH (03:45)
[2018-03-21 05:10] VITALS: BP 121/87; PULSE 120; RESP 24; O2SAT 99
--- NOTE | 2018-03-21 09:29 | P.HP ---
History of Present Illness Service: Hospitalist Primary Care Physician: No Primary Care Physician Chief Complaint: Foot infection History of Present Illness: Patient is a 42-year-old female with a past medical history of bipolar disorder, IV drug use, and endocarditis. She presented to the emergency room with a complaint of multiple skin infections. Per report she was at [facility] 2 days ago where they drained an abscess on her right buttock and started her on doxycycline. She is now complaining of pain, swelling and erythema in her right foot and left forearm. She is very aggressive and wanting narcotic pain medication. She gives me various stories -she tells me that she has scheduled pain medication from a neurologist. She tells me she has been clean for 2 years. She then tells me she has drugs at home and can go get heroin on the street. She also told the emergency room physician that she injects in her neck. HPI and ROS is limited as patient is unwilling to speak about anything else other than getting pain medication. - Diagnosis (1) Cellulitis of leg, right (2) Drug abuse, IV (3) Hypokalemia Review of Systems unobtainable due to mental condition PMFSH - History History Provided By: Patient, Medical Record - Medical History Medical History: Medical History (Last Reviewed 03/21/18 @ 09:12 by KHUSHBU Alvarenga) Anemia Anxiety Bipolar disorder GERD (gastroesophageal reflux disease) Gastritis Endocarditis - Family History Family History: Family History (Last Reviewed 03/21/18 @ 09:13 by KHUSHBU Alvarenga) Other Surgical history unknown Unknown family medical history - Tobacco History Second Hand Smoke Exposure: Yes Tobacco Use In Past 30 Days: Yes Smoking Status: Current every day smoker Tobacco Type: Cigarettes - Alcohol History How Often Do You Have a Drink Containing Alcohol: 2 to 3 times a week - Substance Use History Substance History: Active Abuse - Substance Use Type Methamphetamine Status: Active Route Used: Inhalation Reason for Use: Get High - Travel History Recent Travel in the [place] Within the Last 8 Weeks: No Recent Travel Out of the Country Within the Last 8 Weeks: No - Immunization History Tetanus Immunization: <5 Years Medications and Allergies Active Medications: Active Medications Al Hydroxide/Mg Hydroxide (Milk Of Magnesia Liq) 30 ml PO Q12H PRN PRN Reason: Mild Constipation Bisacodyl (Dulcolax Supp) 10 mg RECTAL DAILY PRN PRN Reason: SEVERE CONSITIPATION Clindamycin/Sodium Chloride (Cleocin 900 Mg/Ns Premix) 900 mg in 50 mls @ 100 mls/hr IV.SIG Q8H MONIQUE Sodium Chloride (Ns Inj) 1,000 mls @ 100 mls/hr IV.CONT .Q10H MONIQUE Last Admin: 03/21/18 05:04 Dose: 100 mls/hr Lactulose (Lactulose Liq) 30 ml PO DAILY PRN PRN Reason: SEVERE CONSITIPATION Sennosides (Senokot) 17.2 mg PO Q12H PRN PRN Reason: Moderate Constipation Allergies Allergy/AdvReac Type Severity Reaction Status Date / Time cefaclor Allergy Severe ANAPHYLAXIS Verified 03/21/18 00:52 cefepime Allergy Severe ANAPHYLAXIS Verified 03/21/18 00:52 ceftaroline fosamil Allergy Severe ANAPHYLAXIS Verified 03/21/18 00:52 ciprofloxacin Allergy Severe Anaphylaxis Verified 03/21/18 00:52 Influenza Virus Vaccines Allergy Severe THROAT Verified 03/21/18 00:52 SWELLS latex Allergy Severe RASH Verified 03/21/18 00:52 Sulfa (Sulfonamide Allergy Severe Anaphylaxis Verified 03/21/18 00:52 Antibiotics) sulfamethoxazole Allergy Severe throat Verified 03/21/18 00:52 closes up trimethoprim Allergy Severe throat Verified 03/21/18 00:52 closes up promethazine AdvReac Intermediate RESTLESS Verified 03/21/18 00:52 LEGS/ANXIETY *MDRO Multi-Drug Resistant AdvReac Unknown Fever Uncoded 11/30/17 04:03 Organism Home Medications Medication Instructions Recorded Confirmed Type bupropion HCl [Wellbutrin SR] 200 mg PO BID 11/30/17 03/21/18 History lurasidone [Latuda] 60 mg PO HS 11/30/17 03/21/18 History gabapentin 600 mg PO TID 03/21/18 03/21/18 History hydroxyzine pamoate [Vistaril] 50 mg PO TID-QID PRN 03/21/18 03/21/18 History oxycodone 30 mg PO Q4-6H PRN 03/21/18 03/21/18 History trazodone 100 mg PO HS 03/21/18 03/21/18 History Exam Vital signs: Vital Signs 03/20/18 20:10 03/21/18 01:45 03/21/18 02:00 Temperature 97.8 F Pulse Rate 102 H 93 H 89 Respiratory Rate 18 18 Blood Pressure 131/70 147/62 H Pulse Oximetry 97 98 03/21/18 02:07 03/21/18 05:06 Temperature Pulse Rate 120 H Respiratory Rate 18 24 Blood Pressure 121/87 Pulse Oximetry 99 Intake & Output 03/20/18 03/21/18 03/21/18 18:59 06:59 18:59 Intake Total 50 / 50 Balance 50 / 50 Weight 52.617 kg Intake: IV 50 / 50 Cleocin 900 mg/NS Premix 900 mg 50 / 50 In 50 ml @ 100 mls/hr IV.SIG ONCE STA Rx#:[id number] Narrative: GENERAL: Well-nourished, well-developed adult female in no obvious distress. SKIN: Generally warm and dry. Diffuse edema to the right foot, ankle, distal leg with diffuse erythema and warmth, no red streaks, no crepitus, no fluctuance or induration. There is an area of warmth and erythema and induration to the patient's left proximal/anterior forearm without fluctuance. Buttock abscess not examined. HEAD: Atraumatic. Normocephalic. CARDIOVASCULAR: Regular rate and rhythm. Murmur. RESPIRATORY: No accessory muscle use. Clear to auscultation. Breath sounds equal bilaterally. GASTROINTESTINAL: Abdomen soft, non-tender, non-distended. Positive bowel sounds. MUSCULOSKELETAL: Extremities without clubbing, cyanosis, or edema. No obvious deformities. NEUROLOGICAL: Awake and alert. No obvious cranial nerve deficits. Motor grossly within normal limits. Normal speech. PSYCHIATRIC: Agitated Results - Labs CBC & Chem 7: 03/21/18 02:00 03/21/18 02:00 Labs: Laboratory Results - last 24 hr 03/21/18 03/21/18 03/21/18 02:00 02:00 02:01 WBC 6.0 RBC 3.85 L Hgb 11.9 Hct 34.9 L MCV 90.5 MCH 31.0 MCHC 34.2 RDW 13.5 Plt Count 233 MPV 8.1 Neut % (Auto) 48.4 Lymph % (Auto) 41.9 Casey % (Auto) 7.1 Eos % (Auto) 2.0 Baso % (Auto) 0.6 Neut # (Auto) 2.9 Lymph # (Auto) 2.5 Casey # (Auto) 0.4 Eos # (Auto) 0.1 Baso # (Auto) 0.0 WBC Differential . Differential Comment Auto diff final Sodium 142 Potassium 3.0 L Chloride 106 Carbon Dioxide 30.2 Anion Gap 6 BUN 5 L Creatinine 0.76 Estimated GFR 84 L Random Glucose 84 Lactic Acid 0.6 Calcium 9.0 Magnesium 2.0 Total Bilirubin 0.4 AST 14 L ALT 30 Alkaline Phosphatase 102 Total Creatine Kinase 92 Troponin I Less than 0.02 L Total Protein 7.5 Albumin 3.3 L - Imaging Impressions Chest X-Ray 03/21/18 00:57 CONCLUSION: No acute disease Foot X-Ray 03/21/18 00:57 CONCLUSION: No acute bony findings. Caprini VTE Risk Assessment Caprini VTE Risk Assessment: No/Low Risk (score <= 1) Caprini Risk Assessment Model: Point Value = 1 Point Value = 2 Point Value = 3 Point Value = 5 Age 41-60 Minor surgery BMI > 25 kg/m2 Swollen legs Varicose veins or History of unexplained or recurrent spontaneous Oral contraceptives or hormone replacement Sepsis (< 1 month) Serious lung disease, including pneumonia (< 1 month) Abnormal pulmonary function Acute myocardial infarction Congestive heart failure (< 1 month) History of inflammatory bowel disease Medical patient at bed rest Age 61-74 Arthroscopic surgery Major open surgery (> 45 min) Laparoscopic surgery (> 45 min) Malignancy Confined to bed (> 72 hours) Immobilizing plaster cast Central venous access Age >= 75 History of VTE Family history of VTE Factor V Leiden Prothrombin [id number] Lupus anticoagulant Anticardiolipin antibodies Elevated serum homocysteine Heparin-induced thrombocytopenia Other congenital or acquired thrombophilia Stroke (< 1 month) Elective arthroplasty Hip, pelvis, or leg fracture Acute spinal cord injury (< 1 month) Prophylaxis Regimen: Total Risk Factor Score Risk Level Prophylaxis Regimen 0-1 Low Early ambulation 2 Moderate Order ONE of the following: *Sequential Compression Device (SCD) *Heparin 5000 units SQ BID 3-4 Higher Order ONE of the following medications: *Heparin 5000 units SQ TID *Enoxaparin/Lovenox 40 mg SQ daily (WT < 150 kg, CrCl > 30 mL/min) *Enoxaparin/Lovenox 30 mg SQ daily (WT < 150 kg, CrCl > 10-29 mL/min) *Enoxaparin/Lovenox 30 mg SQ BID (WT < 150 kg, CrCl > 30 mL/min) AND/OR *Sequential Compression Device (SCD) 5 or more Highest Order ONE of the following medications: *Heparin 5000 units SQ TID (Preferred with Epidurals) *Enoxaparin/Lovenox 40 mg SQ daily (WT < 150 kg, CrCl > 30 mL/min) *Enoxaparin/Lovenox 30 mg SQ daily (WT < 150 kg, CrCl > 10-29 mL/min) *Enoxaparin/Lovenox 30 mg SQ BID (WT < 150 kg, CrCl > 30 mL/min) AND *Sequential Compression Device (SCD) Assessment and Plan - Assessment (1) Cellulitis of leg, right Code(s): L03.115 - Cellulitis of right lower limb Status: Acute (2) Drug abuse, IV Code(s): F19.10 - Other psychoactive substance abuse, uncomplicated Status: Acute (3) Hypokalemia Code(s): E87.6 - Hypokalemia Status: Acute - Plan 42-year-old female with a past medical history of bipolar disorder, drug abuse and endocarditis who presents to the emergency room with a complaint of skin infection. Cellulitis -Afebrile; WBCs WNL -Cultures pending -Continue clindamycin started in ED; monitor for sensitivity Hypokalemia; acute -Replacement given in ED. Repeat labs and monitor Endocarditis -Patient reporting history of endocarditis that was treated in the past. Will repeat echo due to murmur noted on exam and patient complaint of fevers. [facility] -patient does not have scheduled narcotics. -Ibuprofen for pain Bipolar disorder -Patient reports Wellbutrin and Latuda -will restart once confirmed by patient pharmacy. -We will restart reported Vistaril due to present anxiety Discussed with: Patient, nurse, Dr. Ashby DVT prophylaxis: Lovenox Discharge planning: To be determined, likely home
[2018-03-21] MEDS ORDERED: Enoxaparin Inj 40 MG/0.4 ML Syringe SQ SCH (09:30)
[2018-03-21] MEDS ORDERED: Clindamycin 900 mg/NS Premix 900 MG/50 ML PIGGYBACK IV.SIG SCH (10:00)
[2018-03-21] MEDS ORDERED: Ibuprofen 600 MG Tablet PO PRN (10:00)
== END 2018-03-21 10:12 | disposition left against medical advice (07) ==
LOC: NEDA 19:33 → NEPE 19:33 → NEDA 03-21 10:20
PROVIDERS: ADMIT Family Medicine; ATTEND Family Medicine